=== PATIENT | female | born 1950 | race Two or more races ===

== ENCOUNTER 2025-02-11 17:22 | Inpatient (IN) | payer OTHER ==
[~2025-02-11] VITALS: Ht 147.3 cm; Wt 97.4 kg
[2025-02-11] MEDS: SODIUM CHLORIDE 0.9% 1,000 ML IV SCH (03:20)
--- NOTE | 2025-02-11 18:23 | ED.PDOC ---
History of Present Illness(SKN HPI Comments 74 year old female presents to the ED with a chief complaint of wound check. Patient states she began experiencing a wound on RT buttock about 1 week ago, was also experiencing fever with chills, last episode was 102.5 F. Patient states her friend drained the wound yesterday with pus drainage. This morning, she noticed discoloration around the wound. Patient is currently on 3L of O2 at night, upon ED arrival O2 sat was 85% on RA, placed on 3L O2 improved to 95%. PMHx HTN, MS, DM, osteoporosis. Denies nausea, vomiting, diarrhea, headache, abdominal pain, dizziness, chest pain, shortness of breath. No other symptoms or modifying factors present at this time. Chief Complaint: Wound Check Time Seen by MD: 18:10 History of Present Illness: Medications, Allergies Allergies: Coded Allergies: Erythromycin (Verified Allergy, Unknown, 02/11/25) Tetracycline (Verified Allergy, Unknown, 02/11/25) Information Source: Patient Mode of Arrival: Ambulatory Severity: Moderate Timing: Weeks Duration: Since onset Prehospital treatment: None Location: Buttock (RT) Mechanism: Spontaneous Onset Associated Signs and Symptoms: Fever, Chills Past Medical History PAST MEDICAL HISTORY: DM, HTN Past Medical History (Other): MS, osteporosis Surgical History: Denies all surgeries INSULATION APPLICATOR History: No Pertinent INSULATION APPLICATOR History Family History Family History: Reviewed,noncontributory to illness, No family hx of Cancer, No family hx of DM, No family hx of Heart yelena, No family hx of HTN, No family hx ofKidney yelena, No family hx of Liver yelena, No family hx of Lung yelena, No family hx of Stroke Social History Smoker: Non-Smoker Alcohol: Denies ETOH Use Drugs: Denies Drug Use Lives In: Home Constitutional: denies: chills, diaphoresis, fatigue, fever, malaise, sweats, weakness, others EENTM: denies: blurred vision, double vision, ear bleeding, ear discharge, ear drainage, ear pain, ear ringing, eye pain, eye redness, hearing loss, mouth pain, mouth swelling, nasal discharge, nose bleeding, nose congestion, nose pain, photophobia, tearing, throat pain, throat swelling, voice changes, others Respiratory: denies: cough, hemoptysis, orthopnea, SOB at rest, shortness of breath, SOB with excertion, stridor, wheezing, others Cardiovascular: denies: chest pain, dizzy spells, diaphoresis, Dyspnea on exertion, edema, irregular heart beat, left arm pain, lightheadedness, palpitations, PND, syncope, others Gastrointestinal: denies: abdomen distended, abdominal pain, blood streaked bowels, constipated, diarrhea, dysphagia, difficulty swallowing, hematemesis, melena, nausea, poor appetite, poor fluid intake, rectal bleeding, rectal pain, vomiting, others Genitourinary: denies: abnormal vagina bleeding, burning, dyspareunia, dysuria, flank pain, frequency, hematuria, incontinence, pain, , vagina discharge, urgency, others Neurological: denies: dizziness, fainting, headache, left sided numbness, left sided weakness, numbness, paresthesia, pre-existing deficit, right sided numbness, right sided weakness, seizure, speech problems, tingling, tremors, weakness, others Musculoskeletal: denies: back pain, gout, joint pain, joint swelling, muscle pain, muscle stiffness, neck pain, others Integumetry: reports: wounds (RT buttock); denies: bruises, change in color, change in hair/nails, dryness, laceration, lesions, lumps, rash, others Allergic/Immunocompromised: denies: Difficulty Healing, Frequent Infections, Hives, Itching, others Hematologic/Lymphatic: denies: anemia, blood clots, easy bleeding, easy bruising, swollen glands, others Endocrine: denies: excessive hunger, excessive sweating, excessive thirst, excessive urination, flushing, intolerance to cold, intolerance to heat, unexplained weight gain, unexplained weight loss, others Psychiatric: denies: anxiety, bipolar disorder, depression, hopeless, panic dis order, schizophrenia, sleepless, suicidal, others All Other Systems: Reviewed and Negative Physical Exam General Appearance: Normal HEENT: Normal ENT Inspection, Pharynx Normal, TMs Normal Neck: Full Range of Motion, Non-Tender, Normal, Normal Inspection Respiratory: Chest Non-Tender, Lungs Clear, No Accessory Muscle Use, No Respiratory Distress, Normal Breath Sounds Cardiovascular: No Edema, No JVD, No Murmur, No Gallop, Normal Peripheral Pulses, Regular Rate/Rhythm Breast Exam: Deferred Gastrointestinal: No Organomegaly, Non Tender, No Pulsatile Mass, Normal Bowel Sounds, Soft Genitalia: Deferred Pelvic: Deferred Rectal: Deferred Extremities: No calf tenderness, Normal capillary refill, Normal inspection, Normal range of motion, Non-tender, No pedal edema Musculoskeletal : Apperance: Normal Neurologic: Alert, truck caterer II-XII nml as Tested, No Motor Deficits, Normal Affect, Normal Mood, No Sensory Deficits Cerebellar Function: Normal Reflexes: Normal Skin: Wounds (4 x 1 cm wound to RT buttock with surrounding erythema) Lymphatic: No Adenopathy Was a procedure done? Was a procedure done?: No Differential Diagnosis (INTG) Differential Diagnosis: Cellulitis Differential Diagnosis: Abscess Abscess: Bacteremia, Gas Gangrene X-Ray, Labs, Meds, VS Vital Signs Date Time Temp Pulse Resp B/P (MAP) Pulse Ox O2 Delivery O2 Flow Rate FiO2 02/11/25 20:23 144 19 148/66 02/11/25 18:32 99.8 96 13 146/76 (99) 94 99.8 02/11/25 17:57 100.0 109 22 143/71 (95) 86 100.0 Lab Test 02/11/25 21:02 02/11/25 20:46 02/11/25 18:40 02/11/25 17:58 Range/Units Lactic Acid Level 1.5 2.5 *H 0.4-2.0 mmol/L Urine Color Light-yellow Yellow Urine Clarity Clear Clear Urine pH 6.5 5.0-9.0 Urine Specific [place] 1.017 1.001-1.035 Urine Protein Negative Negative Urine Ketones Negative Negative Urine Blood 1+ H Negative /uL Urine Nitrite Negative Negative Urine Bilirubin Negative Negative Urine Urobilinogen Normal Negative mg/dL Urine Leukocyte Esterase 1+ Negative /uL Urine RBC 29 0 - 4 /hpf Urine Microscopic WBC 36 H 0-5 /HPF Urine Squamous Epithelial Cells Few <5 /hpf Urine Bacteria None seen None Seen /hpf Urine Mucus Few None Seen Urine Glucose Normal Normal mg/dL White Blood Count 12.5 H 4.4-10.8 10^3/uL Red Blood Count 4.47 4.0-5.20 10^6/uL Hemoglobin 12.2 12.2-16.2 g/dL Hematocrit 37.7 36.0-46.0 % Mean Corpuscular Volume 84.2 80.0-100.0 fL Mean Corpuscular Hemoglobin 27.4 L 28.0-32.0 pg Mean Corpuscular Hemoglobin Concent 32.5 32.0-36.0 g/dL Red Cell Distribution Width 15.3 H 11.8-14.3 % Platelet Count 315 140-450 10^3/uL Mean Platelet Volume 6.6 L 6.9-10.8 fL Neutrophils (%) (Auto) 77.5 37.0-80.0 % Lymphocytes (%) (Auto) 12.4 10.0-50.0 % Monocytes (%) (Auto) 9.1 0.0-12.0 % Eosinophils (%) (Auto) 0.8 0.0-7.0 % Basophils (%) (Auto) 0.2 0.0-2.0 % Neutrophils # (Auto) 9.7 H 1.6-8.6 10 ^3/uL Lymphocytes # (Auto) 1.5 0.4-5.4 10 ^3/uL Monocytes # (Auto) 1.1 0-1.3 10 ^3/uL Eosinophils # (Auto) 0.1 0-0.8 10 ^3/uL Basophils # (Auto) 0 0-0.2 10 ^3/uL Nucleated Red Blood Cells 0.1 % Sodium Level 137 136-145 mmol/L Potassium Level 3.8 3.5-5.1 mmol/L Chloride Level 99 98-107 mmol/L Carbon Dioxide Level 29 20-31 mmol/L Anion Gap 9 5-15 Blood Urea Nitrogen 19 9-23 mg/dL Creatinine 0.69 0.550-1.02 mg/dL Glomerular Filtration Rate Calc 90 >90 mL/min BUN/Creatinine Ratio 27.5 H 10.0-20.0 Serum Glucose 160 H 74-106 mg/dL Calcium Level 11.3 H 8.7-10.4 mg/dL Total Bilirubin 0.4 0.2-1.0 mg/dL Aspartate Amino Transferase (AST) 23 13-40 U/L Alanine Aminotransferase (ALT) 14 7-40 U/L Alkaline Phosphatase 72 46-116 U/L Total Protein 7.4 5.7-8.2 g/dL Albumin 4.8 3.2-4.8 g/dL POC Glucose 175 H 70-106 mg/dl Current Medications Medications (Trade) Dose Ordered Sig/Paulo Route Start Time Stop Time Status Last Admin Vancomycin HCl 250 ml @ 200 mls/hr ONCE ONCE IV 02/11/25 18:30 02/11/25 19:44 DC 02/11/25 19:07 Sodium Chloride 1,000 ml @ 1,000 mls/hr Q1H ONCE IV 02/11/25 20:00 02/11/25 20:59 DC 02/11/25 20:23 Cefepime HCl 50 ml @ 12.5 mls/hr ONCE ONCE IV 02/11/25 20:00 02/11/25 23:59 02/11/25 21:06 Morphine Sulfate 4 mg ONCE ONCE IV 02/11/25 20:00 02/11/25 20:12 DC 02/11/25 20:23 Ondansetron HCl (Zofran) 4 mg ONCE ONCE IV 02/11/25 20:00 02/11/25 20:12 DC 02/11/25 20:23 X-Ray, Labs, Meds, VS Comment Imaging: X-rays and CT scans were reviewed and interpreted by this provider, imaging shows no fractures and no pathological disease. Pending radiology review. Laboratory: Labs reviewed and interpreted by this provider. Patient has elevated lactic acid, concerns of septicemia Patient will be admitted for cellulitis of the right thigh and bacteremia Patient will be started on vancomycin and cefepime 30 mix per kilos bolus was initiated, blood cultures drawn Patient has prior medical visits reviewed. Med reconciliation performed Vital signs reviewed Time of 1ST Reevaluation: 18:40 Reevaluation 1ST: Unchanged Patient Education/Counseling: Diagnosis, Treatment Family Education/Counseling: No Family Present SEPSIS Sepsis Screen Physician Orders Blood Culture (02/11/25 18:16) Cefepime 1gm/ 50ml (Maxipime 1gm/50ml) (02/11/25 20:00) Ondansetron Hcl (Zofran) (02/11/25 20:00) Vital Signs Date Time Temp Pulse Resp B/P (MAP) Pulse Ox O2 Delivery O2 Flow Rate FiO2 02/11/25 20:23 144 19 148/66 02/11/25 18:32 99.8 96 13 146/76 (99) 94 99.8 02/11/25 17:57 100.0 109 22 143/71 (95) 86 100.0 Laboratory Tests Test 02/11/25 18:40 02/11/25 21:02 Lactic Acid Level 2.5 mmol/L (0.4-2.0) *H 1.5 mmol/L (0.4-2.0) White Blood Count 12.5 10^3/uL (4.4-10.8) H Medications Medications Dose Ordered Sig/Paulo Route Start Time Stop Time Status Last Admin Dose Admin Cefepime HCl 50 ml @ 12.5 mls/hr ONCE ONCE IV 02/11/25 20:00 02/11/25 23:59 02/11/25 21:06 Morphine Sulfate 4 mg ONCE ONCE IV 02/11/25 20:00 02/11/25 20:12 DC 02/11/25 20:23 Ondansetron HCl 4 mg ONCE ONCE IV 02/11/25 20:00 02/11/25 20:12 DC 02/11/25 20:23 Sodium Chloride 1,000 ml @ 1,000 mls/hr Q1H ONCE IV 02/11/25 20:00 02/11/25 20:59 DC 02/11/25 20:23 Vancomycin HCl 250 ml @ 200 mls/hr ONCE ONCE IV 02/11/25 18:30 02/11/25 19:44 DC 02/11/25 19:07 Departure 1 Departure Time of Disposition: 21:29 Impression: Primary Impression: Bacteremia Additional Impression: Cellulitis and abscess of leg Disposition: ADMITTED INPATIENT Condition: Guarded Discharged With: Self Critical Care Note Critical Care Time?: No Stability Stability form required: No Heart Score Heart Score: Heart Score Response (Comments) Value History N/A 0 EKG N/A 0 Age N/A 0 Risk Factors N/A 0 Troponin N/A 0 Total 0 I personally scribed for CASSIDY CHEEMA DIRECTOR RELIGIOUS EDUCATION ([email or web address]) on 02/11/25 at 18:23. Electronically submitted by Cheri Pinon ([email or web address]). I personally scribed for CASSIDY CHEEMA DIRECTOR RELIGIOUS EDUCATION ([email or web address]) on 02/11/25 at 18:44. Electronically submitted by Cheri Pinon ([email or web address]). CASSIDY CHEEMA DIRECTOR RELIGIOUS EDUCATION Feb 11, 2025 18:23
[2025-02-11 18:56] LABS: Hematocrit 37.7 % (36.0-46.0); Hemoglobin 12.2 g/dL (12.2-16.2); Mean Corpuscular Hemoglobin 27.4 pg (28.0-32.0); Mean Corpuscular Volume 84.2 fL (80.0-100.0); Nucleated Red Blood Cells % 0.1 %
[2025-02-11] MEDS: VANCOMYCIN 1.25GM/250ML 250 ML IV ONE (19:07)
[2025-02-11 19:15] LABS: Alanine Aminotransferase 14 U/L (7-40); Albumin 4.8 g/dL (3.2-4.8); Alkaline Phosphatase 72 U/L (46-116); Anion Gap 9 (5-15); BUN/Creatinine Ratio 27.5 (10.0-20.0); Blood Urea Nitrogen 19 mg/dL (9-23); Carbon Dioxide 29 mmol/L (20-31); Chloride 99 mmol/L (98-107); Potassium 3.8 mmol/L (3.5-5.1); Sodium 137 mmol/L (136-145); Total Protein 7.4 g/dL (5.7-8.2)
[2025-02-11 19:16] LABS: Bilirubin, Total 0.4 mg/dL (0.2-1.0)
[2025-02-11 19:30] VITALS: PULSE 88; RESP 13; O2SAT 95
[2025-02-11 19:32] LABS: Calcium 11.3 mg/dL (8.7-10.4); Glucose 160 mg/dL (74-106)
[2025-02-11 19:41] LABS: Lactic Acid w/Reflex 2.5 mmol/L (0.4-2.0)
[2025-02-11] MEDS: ONDANSETRON HCL 4 MG/2 ML VIAL IV ONE (20:23)
[2025-02-11] MEDS: MORPHINE SULFATE 4 MG/ML SYR/VIAL IV ONE (20:23)
[2025-02-11] MEDS: SODIUM CHLORIDE 0.9% 1,000 ML IV ONE (20:23)
[2025-02-11] MEDS: CEFEPIME 1GM/ 50ML 50 ML IV ONE (21:06)
[2025-02-11 21:25] LABS: Urine Protein, UAD Negative (Negative)
[2025-02-11] MEDS: ACETAMINOPHEN 500 MG TAB or CAP PO ONE (22:26)
[2025-02-11] MEDS ORDERED: MORPHINE SULFATE INJ 2 MG/ml SYRG IV PRN (23:30)
[2025-02-11] MEDS ORDERED: DEXTROSE (50%) 50ML SYRG IV PRN (23:30)
[2025-02-11] MEDS ORDERED: VANCOMYCIN PER PHARMACY 0 MG IV SCH (23:30)
[2025-02-11] MEDS ORDERED: PIPERACILLIN-TAZOB 3.375GM 100 ML IV ONE (23:30)
[2025-02-11] MEDS ORDERED: SODIUM CHLORIDE 0.9% 1,000 ML IV SCH (23:30)
--- NOTE | 2025-02-11 23:42 | DVHHP2 ---
History of Present Illness History of Present Illness Patient is 74 years old female with past medical history of hypertension, diabetes mellitus, multiple sclerosis diagnosed in 1988, restless leg syndrome, carvedilol syndrome, chronic back pain, osteoporosis, obstructive sleep apnea on CPAP at night/or NC O2 3 L/min at night history of recurrent UTI came with a complaint of wound in the right buttock. As per patient she started developing small wound of the right lower buttock which gradually got worse and bigger. Yesterday she had this wound//abscess drained by friend at home which did not lots of passes. Patient also had a fever at home up to 102.5 degree F chills. Patient reported right buttock heart when sitting or putting pressure on the buttock. Patient also reported that she had a fall 2 days before at home when she was trying to transfer from bed to the chair and hit her right leg and head. Patient also reported urinary incontinence for a while. Patient denied any chest pain , diarrhea, coughing, abdominal pain, acute joint redness or swelling. Initial lab workup revealed leukocytosis WBC 12.5, hemoglobin 10.2, lactic acidosis with lactic acid 2.5,HbA1c 6.3, urinalysis revealed leukocyte esterase 1+, WBC 36, EKG revealed junctional tachycardia Past Medical History hypertension, diabetes mellitus, multiple sclerosis diagnosed in 1988, restless leg syndrome, carvedilol syndrome, chronic back pain, osteoporosis, obstructive sleep apnea on CPAP at night/or NC O2 3 L/min at night history of recurrent UTI Past Surgical History Pilonidal cyst removal Past Social History Patient denies smoking/alcoholism/drug abuse, lives with son Review of Systems Review of Systems Allergy- erythromycins, tetracycline Patient was seen today at the bedside. Cardiovascular- deny acute chest pain or shortness of breath or cough or palpitation Respiratory denies cough or short of breath or wheezing Gastrointestinal- denies any rectal bleeding, nausea or vomiting Musculoskeletal-denies acute joint swelling or tenderness or redness Neurological- denies acute dysarthria, dysphagia, change in vision Psychiatry- denies depression or SI or HI Skin- bruise in the right great toe Allergies: Coded Allergies: Erythromycin (Verified Allergy, Unknown, 02/11/25) Tetracycline (Verified Allergy, Unknown, 02/11/25) Medications Current Medications Medications Dose Ordered Sig/Paulo Route Start Time Stop Time Status Last Admin Dose Admin Sodium Chloride 1,000 ml @ 120 mls/hr Q8H20M IV 02/11/25 23:30 UNV Acetaminophen 650 mg Q6HP PRN PO 02/11/25 23:30 UNV Morphine Sulfate 2 mg Q30M PRN IV 02/11/25 23:30 UNV Enoxaparin Sodium 40 mg DAILY SC 02/12/25 10:00 UNV Piperacillin Sod/ Tazobactam Sod 100 ml @ 25 mls/hr Q6HR IV 02/12/25 00:00 UNV Vancomycin HCl 0 ml @ 0 mls/hr UD IV 02/11/25 23:30 UNV Sodium Chloride 1,000 ml @ 125 mls/hr Q8H IV 02/11/25 23:30 UNV Pantoprazole Sodium 40 mg DAILY@0600 PO 02/12/25 06:00 UNV Diagnostic Test (Pha) 1 strip ACHS 02/12/25 07:00 UNV Insulin Human Regular ACHS SC 02/12/25 07:00 UNV Dextrose 50 ml UD PRN IV 02/11/25 23:30 UNV Trazodone HCl 100 mg HS PO 02/12/25 22:00 UNV Losartan Potassium 25 mg DAILY PO 02/12/25 10:00 UNV Atorvastatin Calcium 20 mg HS PO 02/12/25 22:00 UNV Exam Vital Signs Vital Signs Date Time Temp Pulse Resp B/P (MAP) Pulse Ox O2 Delivery O2 Flow Rate FiO2 02/11/25 22:26 101.0 02/11/25 20:25 144 02/11/25 20:23 19 148/66 02/11/25 18:32 94 Exam General examination- awake, alert, conversant, mild bruise on the of the nose HEENT- PEERLA-mild abrasion on the of the nose Cardiovascular- S1-S2 audible, rate and rhythm regular, no murmur Respiratory- CTAB, no wheeze or rhonchi Gastrointestinal-nontender, bowel sound+. Nondistended Musculoskeletal-no acute joint swelling or tenderness or redness Lower extremity- bruise on the right great toe Neurological- cranial nerves intact, no acute dysarthria or dysphagia Psychiatry- denies depression or SI or HI Skin- bruise in the right great toe Labs/Xrays Labs Test 02/11/25 21:02 02/11/25 20:46 02/11/25 18:40 02/11/25 17:58 Range/Units Lactic Acid Level 1.5 0.4-2.0 mmol/L Urine Color Light-yellow Yellow Urine Clarity Clear Clear Urine pH 6.5 5.0-9.0 Urine Specific [place] 1.017 1.001-1.035 Urine Protein Negative Negative Urine Ketones Negative Negative Urine Blood 1+ H Negative /uL Urine Nitrite Negative Negative Urine Bilirubin Negative Negative Urine Urobilinogen Normal Negative mg/dL Urine Leukocyte Esterase 1+ Negative /uL Urine RBC 29 0 - 4 /hpf Urine Microscopic WBC 36 H 0-5 /HPF Urine Squamous Epithelial Cells Few <5 /hpf Urine Bacteria None seen None Seen /hpf Urine Mucus Few None Seen Urine Glucose Normal Normal mg/dL White Blood Count 12.5 H 4.4-10.8 10^3/uL Red Blood Count 4.47 4.0-5.20 10^6/uL Hemoglobin 12.2 12.2-16.2 g/dL Hematocrit 37.7 36.0-46.0 % Mean Corpuscular Volume 84.2 80.0-100.0 fL Mean Corpuscular Hemoglobin 27.4 L 28.0-32.0 pg Mean Corpuscular Hemoglobin Concent 32.5 32.0-36.0 g/dL Red Cell Distribution Width 15.3 H 11.8-14.3 % Platelet Count 315 140-450 10^3/uL Mean Platelet Volume 6.6 L 6.9-10.8 fL Neutrophils (%) (Auto) 77.5 37.0-80.0 % Lymphocytes (%) (Auto) 12.4 10.0-50.0 % Monocytes (%) (Auto) 9.1 0.0-12.0 % Eosinophils (%) (Auto) 0.8 0.0-7.0 % Basophils (%) (Auto) 0.2 0.0-2.0 % Neutrophils # (Auto) 9.7 H 1.6-8.6 10 ^3/uL Lymphocytes # (Auto) 1.5 0.4-5.4 10 ^3/uL Monocytes # (Auto) 1.1 0-1.3 10 ^3/uL Eosinophils # (Auto) 0.1 0-0.8 10 ^3/uL Basophils # (Auto) 0 0-0.2 10 ^3/uL Nucleated Red Blood Cells 0.1 % Sodium Level 137 136-145 mmol/L Potassium Level 3.8 3.5-5.1 mmol/L Chloride Level 99 98-107 mmol/L Carbon Dioxide Level 29 20-31 mmol/L Anion Gap 9 5-15 Blood Urea Nitrogen 19 9-23 mg/dL Creatinine 0.69 0.550-1.02 mg/dL Glomerular Filtration Rate Calc 90 >90 mL/min BUN/Creatinine Ratio 27.5 H 10.0-20.0 Serum Glucose 160 H 74-106 mg/dL Calcium Level 11.3 H 8.7-10.4 mg/dL Total Bilirubin 0.4 0.2-1.0 mg/dL Aspartate Amino Transferase (AST) 23 13-40 U/L Alanine Aminotransferase (ALT) 14 7-40 U/L Alkaline Phosphatase 72 46-116 U/L Total Protein 7.4 5.7-8.2 g/dL Albumin 4.8 3.2-4.8 g/dL POC Glucose 175 H 70-106 mg/dl Assessment/Plan Assessment/Plan Assessment and plan #Sepsis likely due right buttock abscess abscess -continue IV normal saline 125 mL per hour -continue antibiotics Zosyn 3.375 g IV q.8h and vancomycin as per pharmacy pr otocol -Ordered surgery consult -ordered wound consult -pending blood culture, wound culture #Abscess of the right buttock --continue antibiotics Zosyn and vancomycin Ordered surgery consult -ordered wound consult -pending blood culture, wound culture #History of fall -CT head negative for acute intracranial abnormality -x-ray of the right foot #Lactic acidosis -continue IV normal saline 125 mL/hour # acute cystitis -pending urine culture -continue current antibiotic #Hypertension -losartan 25 mg p.o. daily -monitor blood pressure #Diabetes mellitus type 2 -continue insulin sliding scale as prescribed # hyperlipidemia -continue atorvastatin 20 mg p.o. q.h.s. #Obstructive sleep apnea #Multiple sclerosis #History of Urinary incontinence #Carpal tunnel syndrome #Chronic back pain #Osteoporosis Goals of care, Code status , dull code ; discussed with >15 minutes PUD prophylaxis: Pantoprazole DVT prophylaxis: Lovenox Plan discussed with Dr. Mota , nursing staff, Total time spent on patient evaluation, chart review, assessment and plan, discussion discussion >35 minutes Plan discussed with: Patient, Other (RN) My Orders Orders - MIRIAM RUBI RESIDENT Procedure Category Date Status Time Admit ADMIT 02/11/25 Transmitted 23:21 Code Status CODE 02/11/25 Transmitted 23:21 Sodium Chloride 0.9% PHA 02/11/25 Logged 23:30 Complete Blood Count LAB 02/12/25 Verified 04:00 Comprehensive LAB 02/12/25 Verified Metabolic Panel 04:00 Echo 2d Mode Cardiac US 02/11/25 Logged DOP 23:21 Acetaminophen Tablet PHA 02/11/25 Logged (Tylenol Tablet) 23:30 Morphine Sulfate PHA 02/11/25 Logged Injection 23:30 Oxygen By Nasal RT 02/11/25 Transmitted Cannula 23:21 Notify Of Changes LOGAN 02/11/25 In Process From Base 23:21 Dry Wall Installations Mechanic For LOGAN 02/11/25 In Process 24 Hours 23:21 Enoxaparin Sodium PHA 02/12/25 Logged (Lovenox) 10:00 Enoxaparin Sodium PHA 02/11/25 Logged (Lovenox) 23:30 Piperacillin-Tazob PHA 02/11/25 Logged 3.375gm (Zosyn 3.375g 23:30 Piperacillin-Tazob PHA 02/12/25 Logged 3.375gm (Zosyn 3.375g 00:00 Vancomycin Per PHA 02/11/25 Logged Pharmacy 23:30 Wound Culture W/ Gs MARC 02/11/25 Logged 23:23 Urine Bacterial MARC 02/11/25 In Process Culture 23:23 Sodium Chloride 0.9% PHA 02/11/25 Logged 23:30 Pantoprazole Tablet PHA 02/11/25 Logged (Protonix Tablet) 23:30 Pantoprazole Tablet PHA 02/12/25 Logged (Protonix Tablet) 06:00 Glucose Blood PHA 02/12/25 Logged (Accu-Chek Comfort 07:00 Insulin R (Human) PHA 02/12/25 Logged (Insulin R) 07:00 Dextrose 50% Syringe PHA 02/11/25 Logged 23:30 Trazodone Hcl PHA 02/12/25 Logged (Desyrel) 22:00 Losartan Tablet PHA 02/12/25 Logged (Cozaar Tablet) 10:00 Atorvastatin (Lipitor) PHA 02/12/25 Logged 22:00 * Surgical Consult CONS 02/11/25 Transmitted * Wound Consult CONS 02/11/25 Transmitted B-Type Natriuretic LAB 02/11/25 Transmitted Peptide 23:31 Magnesium LAB 02/11/25 Transmitted 23:31 Thyroid Stimulating LAB 02/11/25 Transmitted Hormone 23:31 Troponin-I Hs LAB 02/11/25 Transmitted 23:31 Troponin-I Hs LAB 02/12/25 Verified 00:31 Troponin-I Hs LAB 02/12/25 Verified 02:31 Date of Service: Feb 11, 2025 Billing Provider: IDA MOTA MD Common Visit Codes: [id number] INP/OBS CARE (HIGH) Secondary Visit Codes: [id number] CARE PLAN 30 MINUTES MIRIAM RUBI RESIDENT Feb 11, 2025 23:42
[2025-02-12] VITALS (8 sets, daily range): BP systolic 108–170; BP diastolic 64–84; PULSE 62–92; RESP 16–20; TEMP 97.7–98.8; O2SAT 91–98
[2025-02-12] MEDS ORDERED: VANCOMYCIN 750mg/100mL D5W or NS KIT IV ONE
--- NOTE | 2025-02-12 01:08 | DVH ---
CLINICAL HISTORY: History of fall TECHNIQUE: Helical imaging carried out from skull base to vertex without intravenous contrast. This e xam was performed according to our departmental dose optimization program. Up-to-date CT equipment an d radiation dose reduction techniques are utilized as appropriate. CTDIVol: 64.4 mGy DLP: 1267.55 mGy-cm WID: COMPARISON: None FINDINGS: Mild cerebral volume loss with concordant prominence of the subarachnoid spaces and ventricles. Mild- to-moderate patchy low attenuation in the cerebral white matter consistent with nonspecific white mat ter disease. There is no midline shift or mass effect. The waldron white matter interfaces are maintained. The basal cisterns are patent. There is no evidence of acute intracranial hemorrhage or extra-axial fluid bernard ection. Small left mastoid air cell effusion. The right mastoid air cells and visualized paranasal si nuses are well-aerated IMPRESSION: No acute intracranial abnormality. Mild cerebral volume loss and [id number] chronic microvascular ischemic change.
--- NOTE | 2025-02-12 02:53 | DVH ---
EXAM: XY R ANKLE 2 VIEW XRAY HISTORY: fall COMPARISON: None TECHNIQUE: Three views of the right ankle were performed. IMPRESSION: Examination is severely limited secondary to patient positioning. There is chronic appearing deformit y and collapse of the talus. The calcaneus has abnormal morphology which appears likely chronic. It is impossible to exclude acute on chronic subluxation / dislocation or fracture versus chronic change s. Noncontrast CT is recommended.
--- NOTE | 2025-02-12 03:09 | DVH ---
CHEST RADIOGRAPH Indication: PNA Technique: Single frontal view of the chest was obtained Comparison: None IMPRESSION: Heart appears prominent in size. The lungs appear clear without focal airspace opacity, effusion, or pneumothorax
[2025-02-12] MEDS: ENOXAPARIN SOD 40 MG/0.4 ML SYRINGE SC ONE (03:17)
[2025-02-12] MEDS: PANTOPRAZOLE 40 MG TAB PO ONE (03:17)
[2025-02-12] MEDS: VANCOMYCIN 750 MG IV ONE (04:00)
[2025-02-12 04:19] LABS: Hematocrit 36.0 % (36.0-46.0); Hemoglobin 11.9 g/dL (12.2-16.2); Mean Corpuscular Hemoglobin 27.6 pg (28.0-32.0); Mean Corpuscular Volume 83.4 fL (80.0-100.0); Nucleated Red Blood Cells % 0.2 %
[2025-02-12 04:35] LABS: Alanine Aminotransferase 14 U/L (7-40); Albumin 4.1 g/dL (3.2-4.8); Alkaline Phosphatase 59 U/L (46-116); Anion Gap 7 (5-15); BUN/Creatinine Ratio 25.4 (10.0-20.0); Bilirubin, Total 0.5 mg/dL (0.2-1.0); Blood Urea Nitrogen 15 mg/dL (9-23); Calcium 10.2 mg/dL (8.7-10.4); Carbon Dioxide 30 mmol/L (20-31); Chloride 102 mmol/L (98-107); Potassium 3.7 mmol/L (3.5-5.1); Sodium 139 mmol/L (136-145); Total Protein 6.4 g/dL (5.7-8.2)
[2025-02-12] MEDS: VANCOMYCIN 750mg/150ml 150 ML IV ONE (04:41)
[2025-02-12 04:44] LABS: Glucose 201 mg/dL (74-106)
[2025-02-12] MEDS ORDERED: KETOROLAC TROMETH 30 MG/ML 1ML VIAL IV PRN (05:45)
[2025-02-12] MEDS: KETOROLAC TROMETH 30 MG/ML 1ML VIAL IV ONE (05:53)
--- NOTE | 2025-02-12 05:53 | ECG ---
[facility] Test Date: 2025-02-11 Test Time: 20:25:36 Pat Name: VALERIE RICE Department: ED Room: 0270T Gender: F Retail General Manager: LEX : [phone] Requested By: CASSIDY CHEEMA Order Number: [id number] Reading MD: Ulysses Gordon Measurements Intervals [place] Rate: 144 P: 0 IN: 0 QRS: 66 QRSD: 104 T: 259 QT: 295 QTc: 457 Interpretive Statements Junctional tachycardia Inferior infarct, age indeterminate Lateral leads are also involved Electronically Signed On 02-13-2025 10:25:00 PDT by Ulysses Gordon Please click the below link to view image of tracing.
[2025-02-12] MEDS: InsuLIN REG 1unit/0.01ml Soln (100units/ml) SC SCH (07:00)
[2025-02-12] MEDS: MAGNESIUM SULFATE 1GM/100ML 100 ML IV ONE (07:15)
[2025-02-12] MEDS: PANTOPRAZOLE 40 MG TAB PO SCH (07:16)
[2025-02-12] MEDS: ACCU-CHEK COMFORT CURVE STRIP VI SCH (07:17)
[2025-02-12] MEDS ORDERED: TRAM50TA2 PO (07:30)
[2025-02-12] MEDS ORDERED: METF-370 PO (07:30)
[2025-02-12] MEDS ORDERED: TIZA4CAP PO (07:30)
[2025-02-12] MEDS: LOSARTAN POTASSIUM 25 MG TAB PO SCH (10:56)
[2025-02-12] MEDS ORDERED: hydrALAZINE HCL 20 MG/ML VL IV PRN (12:45)
[2025-02-12] MEDS: HYDROcodone-ACET 10/325MG TAB PO PRN (13:03)
[2025-02-12] MEDS: LOSARTAN POTASSIUM 25 MG TAB PO ONE (13:05)
[2025-02-12] MEDS: PIPERACILLIN-TAZOB 3.375GM 100 ML IV SCH (14:00)
[2025-02-12] MEDS: GABAPENTIN 300 MG CAP PO SCH (14:15)
[2025-02-12] MEDS: MORPHINE SULFATE INJ 2 MG/ml SYRG IV PRN (14:15)
--- NOTE | 2025-02-12 14:15 | DVH ---
Technique: Real-time ultrasound imaging of the right gluteal region of interest was performed with gr ayscale and color Doppler. Indication: ABSCESS INFERIOR RT BUTTOCK Comparison: None Findings: Sonographic images of the right inguinal region of interest were obtained. There is a hypoechoic col lection measuring 1.2 x 0.4 cm with surrounding vascularity, likely representing phlegmon/abscess. T here is extensive surrounding soft tissue edema and hyperemia. There are echogenic foci within the laboy bcutaneous tissues consistent with air/gas. Correlate exclude necrotizing infections. Impression: As above
--- NOTE | 2025-02-12 14:56 | DVHSR ---
APPROVED REPORT EXAM: LIMITED Two-dimensional and M-mode echocardiogram with Doppler and color Doppler. Blood Pressure: 135/57 mmHg INDICATION cardiac arrythmia / HF RISK FACTORS Obesity: Height: 4'10, Weight: 253 DIMENSIONS LVDd (3.8-5.7cm)LA (2D)4.4 (1.9-4.0cm)Aortic Root (2.0-3.7cm) EF (%) 55.0 (55-70%)Rt. Atrium3.9 (1.9-4.0cm)Asc. Aorta cm Mitral Valve MitralMitral Stenosis E wave0.65m/sMV Mean GR.mmHg A wave0.98m/sMV Peak GR.65mmHg E/A ratio0.72D MVAcm2 DECEL [id number] 1/2 Timems Aortic Valve Aortic ValveAortic Stenosis V11.03m/Shanti Mean GR.5mmHg V21.48m/Shanti Peak GR.9mmHg LVOT Diameter2.2 (1.8-2.4cm)Doppler AVA2.64cm2 AI P 1/2 Hpeo048.13ms Other Information Quality : Technically LimitedRhythm : Technically limited study due to patient position.body habitus. Conclusion lvef 55% mild LVH normal rv function left atrium enlarged no severe valve abnormalities noted
[2025-02-12] MEDS: VANCOMYCIN 750mg/150ml 150 ML IV SCH (16:03)
--- NOTE | 2025-02-12 17:56 | DVHPNRES ---
Progress Note Date Seen: Feb 12, 2025 Resident Creating Document: JUAN RAMON SCHMID RESIDENT Medical Necessity Reason Pt with a Central, PICC or Fol: Yes The following are medically ne: Villalba Catheter Medical Necessity Reason Urinary Incontinence Subjective Review of Systems Patient is 74 years old female with past medical history of hypertension, diabetes mellitus, multiple sclerosis diagnosed in 1988, restless leg syndrome, carvedilol syndrome, chronic back pain, osteoporosis, obstructive sleep apnea on CPAP at night/or NC O2 3 L/min at night history of recurrent UTI came with a complaint of wound in the right buttock. As per patient she started developing small wound of the right lower buttock which gradually got worse and bigger. Yesterday she had this wound//abscess drained by friend at home which did not lots of passes. Patient also had a fever at home up to 102.5 degree F chills. Patient reported right buttock heart when sitting or putting pressure on the buttock. Patient also reported that she had a fall 2 days before at home when she was trying to transfer from bed to the chair and hit her right leg and head. Patient also reported urinary incontinence for a while. Patient denied any chest pain , diarrhea, coughing, abdominal pain, acute joint redness or swelling. Initial lab workup revealed leukocytosis WBC 12.5, hemoglobin 10.2, lactic acidosis with lactic acid 2.5,HbA1c 6.3, urinalysis revealed leukocyte esterase 1+, WBC 36, EKG revealed junctional tachycardia 02/12/25 Patient was examined at the bedside today. She reports worsening severe pain and swelling over the right buttock and lower gluteal region secondary to an abscess that was manually drained by a friend at home. She endorses persistent drainage, redness, warmth, and increasing discomfort. Additionally, the patient complains of bilateral lower extremity swelling described as "non-fitting" edema. She also notes pain in her right lower extremity, particularly the great toe region, following a fall 2 days ago. She denies chest pain, cough, or abdominal pain. She continues to have urinary incontinence. No nausea, vomiting, dizziness, headache, or visual changes reported today. She requests nursing assistance for wound care and toileting due to discomfort. Past Medical History hypertension, diabetes mellitus, multiple sclerosis diagnosed in 1988, restless leg syndrome, carvedilol syndrome, chronic back pain, osteoporosis, obstructive sleep apnea on CPAP at night/or NC O2 3 L/min at night history of recurrent UTI Past Surgical History Pilonidal cyst removal Past Social History Patient denies smoking/alcoholism/drug abuse, lives with son Review of Systems (ROS): * General: Fatigue, pain, fevers (prior) * Cardiovascular: Denies chest pain or palpitations * Respiratory: No cough or SOB * GI: No N/V/D, no abdominal pain * : Urinary incontinence persists * MSK: Right gluteal and lower extremity pain, right toe pain * Skin: Painful right buttock abscess with surrounding erythema * Neuro: No focal deficits, alert and oriented * Psych: No depression, SI/HI Objective vital signs Vital Sign Date Time Temp Pulse Resp B/P (MAP) Pulse Ox O2 Delivery O2 Flow Rate FiO2 02/12/25 16:39 98.8 68 16 148/78 (101) 94 98.8 02/12/25 06:34 Nasal Cannula* 2 28 Total Intake and Output 02/11/25 02/11/25 02/12/25 14:59 22:59 06:59 Intake Total 1262.5 ml 387.5 ml Balance 1262.5 ml 387.5 ml medications Current Medications Medications Dose Ordered Sig/Paulo Route Start Time Stop Time Status Last Admin Dose Admin Acetaminophen 650 mg Q6HP PRN PO 02/11/25 23:30 Morphine Sulfate 2 mg Q30M PRN IV 02/11/25 23:30 Enoxaparin Sodium 40 mg HS SC 02/12/25 22:00 Piperacillin Sod/ Tazobactam Sod 100 ml @ 25 mls/hr Q8HR IV 02/12/25 06:00 02/12/25 14:28 25 MLS/HR Vancomycin HCl 0 ml @ 0 mls/hr UD IV 02/11/25 23:30 Sodium Chloride 1,000 ml @ 125 mls/hr Q8H IV 02/11/25 23:30 02/12/25 09:00 125 MLS/HR Pantoprazole Sodium 40 mg DAILY@0600 PO 02/12/25 06:00 02/12/25 07:16 40 MG Diagnostic Test (Pha) 1 strip ACHS 02/12/25 07:00 02/12/25 11:30 1 STRIP Insulin Human Regular ACHS SC 02/12/25 07:00 Dextrose 50 ml UD PRN IV 02/11/25 23:30 Trazodone HCl 100 mg HS PO 02/12/25 22:00 Atorvastatin Calcium 20 mg HS PO 02/12/25 22:00 Vancomycin HCl 150 ml @ 150 mls/hr Q12H IV 02/12/25 16:00 02/12/25 16:03 150 MLS/HR Losartan Potassium 50 mg DAILY PO 02/13/25 10:00 Acetaminophen/ Hydrocodone Bitart 1 tab Q6HP PRN PO 02/12/25 12:45 02/12/25 13:03 1 TAB Morphine Sulfate 1 mg Q4HP PRN IV 02/12/25 12:45 02/12/25 14:15 1 MG Hydralazine HCl 10 mg Q6HP PRN IV 02/12/25 12:45 Gabapentin 600 mg TID PO 02/12/25 14:00 02/12/25 14:15 600 MG Baclofen 10 mg BID PRN PO 02/12/25 13:15 Polyethylene Glycol 17 gm DAILYPRN PRN PO 02/12/25 13:15 Examination Physical Examination: * General: Alert, conversant, uncomfortable due to pain * HEENT: Mild nasal abrasion noted previously, unchanged * CV: RRR, no murmur * Resp: CTAB, no distress * Abdomen: Soft, NT, BS+ * MSK: Bilateral LE pitting edema, right great toe bruised and tender, limited ambulation * Neuro: Alert and oriented, deputy county counsel intact * Skin: Right buttock abscess with fluctuance, erythema, tenderness, possible drainage site laboratory and microbiology Laboratory Tests 02/12/25 03:41 Test 02/12/25 03:41 Range/Units Serum Glucose 201 H 74-106 mg/dL Microbiology Date/Time Source Procedure Growth Status 02/12/25 08:00 Buttock Right Gram Stain - Final Resulted 02/12/25 08:00 Buttock Right Wound Culture Pending Resulted Problem List/Assessment/Plan Problem List/Assessment/Plan Assessment/Findings ): 1. Sepsis likely secondary to right gluteal abscess with early signs of soft tissue necrosis. 2. Right buttock abscess with probable secondary infection and necrotizing changes per U/S. 3. Bilateral lower extremity edema - likely multifactorial (infection, dependent edema, poor mobility, CHF vs. venous stasis). 4. Junctional tachycardia, rate 144 bpm likely secondary to systemic illness/stress response. 5. Urinary tract infection pyuria and hematuria with history of incontinence and recurrent UTIs. 6. History of mechanical fall with right lower extremity trauma. 7. Type 2 diabetes mellitus well-controlled inpatient on sliding scale insulin. 8. Hypertension currently elevated; continues on losartan. 9. Obstructive sleep apnea on CPAP. 10. Multiple sclerosis chronic, stable. 11. Osteoporosis chronic, 12. Hyperlipidemia on atorvastatin. Plan (System-reis): Infectious Disease / Skin & Soft Tissue: * Continue IV Zosyn 3.375g Q8H and IV Vancomycin per protocol * Continue IV Clindamycin 900mg TID * Continue NS 125 mL/hr for hydration * STAT Surgical consult for debridement of abscess vs. necrotizing fasciitis * Wound care consult for bedside management and debridement * Wound and blood cultures pending * Daily CBC, BMP, lactate Cardiovascular: * Monitor for signs of fluid overload vs. cardiac cause of LE edema * Continue Losartan 50 mg daily * Monitor BP q6h, Pulmonary: * Continue CPAP at night as per home use * CXR showed cardiomegaly but clear lungs monitor for signs of fluid overload or infection * SpO2 9195% RA; continue monitoring Renal/Urinary: * UA suggestive of cystitis continue current empiric antibiotics * Encourage PO fluids Endocrine (DM2): * Continue Insulin Regular ACHS sliding scale * POC glucose monitoring most recent 166 mg/dL * HbA1c 6.3% controlled Neurology: * MS stable * CT head shows chronic ischemic changes; no acute bleed * Monitor neuro status given fall history GI/Nutrition: * Continue Pantoprazole 40 mg PO daily * Encourage PO intake * Consider nutrition consult if poor oral intake persists Musculoskeletal / Fall: * Ankle X-ray inconclusive CT recommended * Right great toe injury conservative management unless worsening * Physical therapy referral for mobility Prophylaxis: * Enoxaparin 40 mg SC daily for DVT prophylaxis * Pantoprazole for stress ulcer prophylaxis Plan discussed with Attending Physician , nursing staff, Total time spent on patient evaluation, chart review, assessment and plan, discussion discussion >35 minutes Plan discussed with: Patient, Other (RN) Plan discussed with: Patient My Orders My Orders Orders - JUAN RAMON SCHMID RESIDENT Procedure Category Date Status Time Insert Midline ORDERS 02/12/25 Transmitted 08:32 Comprehensive LAB 02/13/25 Verified Metabolic Panel 04:00 Date of Service: Feb 12, 2025 Billing Provider: LUKAS RIVER MD Common Visit Codes: [id number] INP/OBS CARE(HIGH) JUAN RAMON SCHMID RESIDENT Feb 12, 2025 17:56 LUKAS RIVER MD Feb 23, 2025 02:38
[2025-02-12] MEDS: ENOXAPARIN SOD 40 MG/0.4 ML SYRINGE SC SCH (21:40)
[2025-02-12] MEDS: BACLOFEN 10 MG TAB PO PRN (21:41)
[2025-02-12] MEDS: ATORVASTATIN 20 MG TAB PO SCH (21:41)
[2025-02-12] MEDS: CLINDAMYCIN 900MG IV 50 ML IV SCH (21:42)
[2025-02-12] MEDS: POLYETHYLENE GLYCOL 17 GM PWDR PO PRN (21:43)
[2025-02-12] MEDS ORDERED: ROPI2TAB27 PO (22:06)
[2025-02-12] MEDS: ROPINIROLE 2 MG PO SCH (22:31)
[2025-02-13] VITALS (9 sets, daily range): BP systolic 132–158; BP diastolic 72–96; PULSE 74–89; RESP 18–20; TEMP 97.1–99.8; O2SAT 95–99
[2025-02-13 09:05] LABS: Hematocrit 35.0 % (36.0-46.0); Hemoglobin 11.4 g/dL (12.2-16.2); Mean Corpuscular Hemoglobin 27.5 pg (28.0-32.0); Mean Corpuscular Volume 84.3 fL (80.0-100.0); Nucleated Red Blood Cells % 0.1 %
[2025-02-13 09:27] LABS: Alanine Aminotransferase 11 U/L (7-40); Albumin 3.7 g/dL (3.2-4.8); Alkaline Phosphatase 55 U/L (46-116); Anion Gap 11 (5-15); BUN/Creatinine Ratio 20.3 (10.0-20.0); Blood Urea Nitrogen 12 mg/dL (9-23); Calcium 9.4 mg/dL (8.7-10.4); Carbon Dioxide 24 mmol/L (20-31); Chloride 102 mmol/L (98-107); Potassium 3.9 mmol/L (3.5-5.1); Sodium 137 mmol/L (136-145); Total Protein 5.9 g/dL (5.7-8.2)
[2025-02-13 09:28] LABS: Bilirubin, Total 0.4 mg/dL (0.2-1.0)
[2025-02-13 09:29] LABS: Glucose 217 mg/dL (74-106)
[2025-02-13] MEDS: LOSARTAN POTASSIUM 50 MG TAB PO SCH (10:19)
[2025-02-13] MEDS: VANCOMYCIN 1GM/250ML KIT 250 ML IV SCH (16:00)
--- NOTE | 2025-02-13 19:43 | DVHPNRES ---
Progress Note Date Seen: Feb 13, 2025 Resident Creating Document: JUAN RAMON SCHMID RESIDENT Medical Necessity Reason Pt with a Central, PICC or Fol: Yes The following are medically ne: Villalba Catheter Medical Necessity Reason Urinary incontinence Subjective Review of Systems Review of Systems Patient is 74 years old female with past medical history of hypertension, diabetes mellitus, multiple sclerosis diagnosed in 1988, restless leg syndrome, carvedilol syndrome, chronic back pain, osteoporosis, obstructive sleep apnea on CPAP at night/or NC O2 3 L/min at night history of recurrent UTI came with a complaint of wound in the right buttock. As per patient she started developing small wound of the right lower buttock which gradually got worse and bigger. Yesterday she had this wound//abscess drained by friend at home which did not lots of passes. Patient also had a fever at home up to 102.5 degree F chills. Patient reported right buttock heart when sitting or putting pressure on the buttock. Patient also reported that she had a fall 2 days before at home when she was trying to transfer from bed to the chair and hit her right leg and head. Patient also reported urinary incontinence for a while. Patient denied any chest pain , diarrhea, coughing, abdominal pain, acute joint redness or swelling. Initial lab workup revealed leukocytosis WBC 12.5, hemoglobin 10.2, lactic acidosis with lactic acid 2.5,HbA1c 6.3, urinalysis revealed leukocyte esterase 1+, WBC 36, EKG revealed junctional tachycardia 02/12/25 Patient was examined at the bedside today. She reports worsening severe pain and swelling over the right buttock and lower gluteal region secondary to an abscess that was manually drained by a friend at home. She endorses persistent drainage, redness, warmth, and increasing discomfort. Additionally, the patient complains of bilateral lower extremity swelling described as "non-fitting" edema. She also notes pain in her right lower extremity, particularly the great toe region, following a fall 2 days ago. She denies chest pain, cough, or abdominal pain. She continues to have urinary incontinence. No nausea, vomiting, dizziness, headache, or visual changes reported today. She requests nursing assistance for wound care and toileting due to discomfort. 02/12/25 The patient was re-examined at the bedside today. She continues to experience severe right buttock pain due to a draining abscess. Morphine was administered overnight for pain control, with subsequent improvement in blood pressure. RN confirms that wound care is ongoing with application of Medihoney, and the wound appears clean but still draining. The patient reports worsening symptoms of restless leg syndrome. Baclofen was administered for restless leg syndrome. Blood pressure has fluctuated today between 138/77 and 158/89. She received 2L nasal cannula overnight with SpO? maintained at 98%. WBC count has improved to 9.5, CMP remains stable. Wound culture preliminary shows rare growthpossible Staphylococcus aureus. Gram stain showed rare RBCs, WBCs, and rare gram-positive cocci in pairs. Blood cultures remain negative at 48 hours. Awaiting evaluation by general surgery. Past Medical History hypertension, diabetes mellitus, multiple sclerosis diagnosed in 1988, restless leg syndrome, carvedilol syndrome, chronic back pain, osteoporosis, obstructive sleep apnea on CPAP at night/or NC O2 3 L/min at night history of recurrent UTI Past Surgical History Pilonidal cyst removal Past Social History Patient denies smoking/alcoholism/drug abuse, lives with son Review of Systems (ROS): * General: Fatigue, pain, fevers (prior) * Cardiovascular: Denies chest pain or palpitations * Respiratory: No cough or SOB * GI: No N/V/D, no abdominal pain * : Urinary incontinence persists * MSK: Right gluteal and lower extremity pain, right toe pain * Skin: Painful right buttock abscess with surrounding erythema * Neuro: No focal deficits, alert and oriented * Psych: No depression, SI/HI Objective vital signs Vital Sign Date Time Temp Pulse Resp B/P (MAP) Pulse Ox O2 Delivery O2 Flow Rate FiO2 02/13/25 16:47 98.4 80 20 155/96 (115) 97 98.4 02/13/25 08:00 Nasal Cannula* 2 28 Total Intake and Output 02/12/25 02/12/25 02/13/25 15:00 23:00 07:00 Intake Total 2000 ml 700 ml Output Total 800 ml 600 ml Balance 1200 ml 100 ml medications Current Medications Medications Dose Ordered Sig/Paulo Route Start Time Stop Time Status Last Admin Dose Admin Acetaminophen 650 mg Q6HP PRN PO 02/11/25 23:30 Enoxaparin Sodium 40 mg HS SC 02/12/25 22:00 02/12/25 21:40 40 MG Vancomycin HCl 0 ml @ 0 mls/hr UD IV 02/11/25 23:30 Sodium Chloride 1,000 ml @ 125 mls/hr Q8H IV 02/11/25 23:30 02/12/25 09:00 125 MLS/HR Pantoprazole Sodium 40 mg DAILY@0600 PO 02/12/25 06:00 02/13/25 05:55 40 MG Diagnostic Test (Pha) 1 strip ACHS 02/12/25 07:00 02/13/25 17:05 1 STRIP Insulin Human Regular ACHS SC 02/12/25 07:00 02/13/25 17:06 2 UNITS Dextrose 50 ml UD PRN IV 02/11/25 23:30 Trazodone HCl 100 mg HS PO 02/12/25 22:00 02/12/25 21:41 100 MG Atorvastatin Calcium 20 mg HS PO 02/12/25 22:00 02/12/25 21:41 20 MG Losartan Potassium 50 mg DAILY PO 02/13/25 10:00 02/13/25 10:19 50 MG Acetaminophen/ Hydrocodone Bitart 1 tab Q6HP PRN PO 02/12/25 12:45 02/12/25 13:03 1 TAB Morphine Sulfate 1 mg Q4HP PRN IV 02/12/25 12:45 02/13/25 14:29 1 MG Hydralazine HCl 10 mg Q6HP PRN IV 02/12/25 12:45 Gabapentin 600 mg TID PO 02/12/25 14:00 02/13/25 14:29 600 MG Baclofen 10 mg BID PRN PO 02/12/25 13:15 02/13/25 17:22 10 MG Polyethylene Glycol 17 gm DAILYPRN PRN PO 02/12/25 13:15 02/12/25 21:43 17 GM Clindamycin Phosphate 50 ml @ 50 mls/hr Q8HR IV 02/12/25 22:00 02/13/25 14:00 50 MLS/HR Patient Own Medication 1 HS PO 02/13/25 22:00 02/12/25 22:31 1 Cefepime HCl 50 ml @ 12.5 mls/hr Q8H IV 02/13/25 23:00 Vancomycin HCl 250 ml @ 250 mls/hr Q12H IV 02/13/25 16:00 02/13/25 16:00 250 MLS/HR Examination Physical Examination: * General: Alert, conversant, uncomfortable due to pain * HEENT: Mild nasal abrasion noted previously, unchanged * CV: RRR, no murmur * Resp: CTAB, no distress * Abdomen: Soft, NT, BS+ * MSK: Bilateral LE pitting edema, right great toe bruised and tender, limited ambulation * Neuro: Alert and oriented, corrugated fastener driver intact * Skin: Right buttock abscess with fluctuance, erythema, tenderness, possible drainage site laboratory and microbiology Laboratory Tests 02/13/25 08:47 Test 02/13/25 08:47 Range/Units Serum Glucose 217 H 74-106 mg/dL Microbiology Date/Time Source Procedure Growth Status 02/12/25 08:00 Buttock Right Gram Stain - Final Resulted 02/12/25 08:00 Buttock Right Wound Culture - Preliminary Resulted 02/11/25 20:46 Voided Urine Urine Culture - Preliminary Resulted 02/11/25 18:40 Blood Blood Culture - Preliminary NO GROWTH AFTER 48 HOURS OF INCUBATION. Resulted Problem List/Assessment/Plan Problem List/Assessment/Plan Assessment/Findings ): 1. Sepsis likely secondary to right gluteal abscess with early signs of soft tissue necrosis. 2. Right buttock abscess with probable secondary infection and necrotizing changes per U/S. 3. Bilateral lower extremity edema - likely multifactorial (infection, dependent edema, poor mobility, venous stasis). 4. Junctional tachycardia, rate 144 bpm likely secondary to systemic illness/stress response. 5. Urinary tract infection pyuria and hematuria with history of incontinence and recurrent UTIs. 6. History of mechanical fall with right lower extremity trauma. 7. Type 2 diabetes mellitus well-controlled inpatient on sliding scale insulin. 8. Hypertension currently elevated; continues on losartan. 9. Obstructive sleep apnea on CPAP. 10. Multiple sclerosis chronic, stable. 11. Osteoporosis chronic, 12. Hyperlipidemia on atorvastatin. Plan (System-reis): Infectious Disease / Skin & Soft Tissue: Pain improved with morphine overnight; BP stabilized post-analgesia [facility] is draining Cefepime continued; Zosyn discontinued Await wound culture ID/sensitivity preliminary shows possible Staph aureus General surgery consult remains pending follow up today for debridement of abscess vs. necrotizing fasciitis * Continue IV Vancomycin per protocol * Continue IV Clindamycin 900mg TID * Continue NS 125 mL/hr for hydration * Wound care consult for bedside management and debridement * Daily CBC, BMP, lactate Cardiovascular: * Monitor for signs of fluid overload vs. cardiac cause of LE edema * Continue Losartan 50 mg daily * Monitor BP q6h, Echocardiogram findings (FYI) EF 55%, mild LVH, LAE, normal RV function no acute action required Pulmonary: * Continue CPAP at night as per home use * CXR showed cardiomegaly but clear lungs monitor for signs of fluid overload or infection * SpO2 9195% RA; continue monitoring Renal/Urinary: * UA suggestive of cystitis continue current empiric antibiotics * Encourage PO fluids Endocrine (DM2): * Continue Insulin Regular ACHS sliding scale * POC glucose monitoring most recent 166 mg/dL * HbA1c 6.3% controlled Neurology: * MS stable * CT head shows chronic ischemic changes; no acute bleed * Monitor neuro status given fall history Baclofen given for restless leg syndrome GI/Nutrition: * Continue Pantoprazole 40 mg PO daily * Encourage PO intake * Consider nutrition consult if poor oral intake persists Musculoskeletal / Fall: * Ankle X-ray inconclusive CT recommended * Right great toe injury conservative management unless worsening * Physical therapy referral for mobility Prophylaxis: * Enoxaparin 40 mg SC daily for DVT prophylaxis * Pantoprazole for stress ulcer prophylaxis Plan discussed with Attending Physician , nursing staff, Total time spent on patient evaluation, chart review, assessment and plan, discussion discussion >35 minutes Plan discussed with: Patient, Other (RN) Plan discussed with: Patient My Orders My Orders Orders - JUAN RAMON SCHMID RESIDENT Procedure Category Date Status Time Cefepime 2gm/50ml Ns PHA 02/13/25 In Process (Maxipime 2gm/50ml) 23:00 Complete Blood Count LAB 02/14/25 Verified 04:00 Comprehensive LAB 02/14/25 Verified Metabolic Panel 04:00 Dietary Evaluation Review Recommendations by RD: Dietary education by RD, Protein Supplementation Comments: 1) Initiate MVI @ 1 tb qd 2) Initiate vitamin C @ 500 mg bid and zinc sulfate @ 220 mg qd for 7 days 3) Initiate mer @ 1 pk bid 4) Encourage optimal PO intake 5) Refer to outpatient RD/CD[facility] for weight management 6) Continue to monitor I&O, labs, and skin integrity Expected Outcomes/Goals: 1) appetite and labs to improve 2) wound to improve 3) f/u in 3-5 days Date of Service: Feb 13, 2025 Billing Provider: LUKAS RIVER MD Common Visit Codes: [id number] INP/OBS CARE(HIGH) JUAN RAMON SCHMID RESIDENT Feb 13, 2025 19:43 LUKAS RIVER MD Feb 23, 2025 01:45
[2025-02-13] MEDS: CEFEPIME 2GM/50ML NS 50 ML IV SCH (22:54)
[2025-02-14] VITALS (7 sets, daily range): BP systolic 125–150; BP diastolic 70–90; PULSE 69–84; RESP 17–19; TEMP 96.6–98.6; O2SAT 92–96
[2025-02-14 07:13] LABS: Hematocrit 34.4 % (36.0-46.0); Hemoglobin 11.5 g/dL (12.2-16.2); Mean Corpuscular Hemoglobin 28.0 pg (28.0-32.0); Mean Corpuscular Volume 83.7 fL (80.0-100.0); Nucleated Red Blood Cells % 0.1 %
[2025-02-14 07:39] LABS: Albumin 3.8 g/dL (3.2-4.8); Alkaline Phosphatase 51 U/L (46-116); Anion Gap 9 (5-15); BUN/Creatinine Ratio 19.3 (10.0-20.0); Blood Urea Nitrogen 11 mg/dL (9-23); Calcium 9.8 mg/dL (8.7-10.4); Carbon Dioxide 27 mmol/L (20-31); Chloride 105 mmol/L (98-107); Potassium 4.0 mmol/L (3.5-5.1); Sodium 141 mmol/L (136-145); Total Protein 6.0 g/dL (5.7-8.2)
[2025-02-14 07:40] LABS: Bilirubin, Total 0.3 mg/dL (0.2-1.0)
[2025-02-14 07:50] LABS: Alanine Aminotransferase 9 U/L (7-40); Glucose 131 mg/dL (74-106)
--- NOTE | 2025-02-14 09:55 | DVHPNRES ---
Progress Note Date Seen: Feb 14, 2025 Resident Creating Document: ANGELO GUEVARA RESIDENT Has the PT tested + for MRSA If YES, has PT been informed?: No Medical Necessity Reason Pt with a Central, PICC or Fol: Yes The following are medically ne: Villalba Catheter Subjective Review of Systems Patient is 74 years old female with past medical history of hypertension, diabetes mellitus, multiple sclerosis diagnosed in 1988, restless leg syndrome, chronic back pain, osteoporosis, obstructive sleep apnea on CPAP at night/or NC O2 3 L/min at night history of recurrent UTI, consulted to the ED on 02/11with a complaint of wound in the right buttock. As per patient she started developing small wound of the right lower buttock which gradually got worse and bigger. The patiented reported she had this wound/abscess drained by friend at home which did not lots of passes. Patient also had a fever at home up to 102.5 degree and chills. Patient reported right buttock heart when sitting or putting pressure on the buttock. Patient also reported that she had a fall 2 days before at home when she was trying to transfer from bed to the chair and hit her right leg and head. Patient also reported urinary incontinence for a while. Patient denied any chest pain , diarrhea, coughing, abdominal pain, acute joint redness or swelling. Initial lab in the ED workup revealed leukocytosis WBC 12.5, hemoglobin 10.2, lactic acidosis with lactic acid 2.5,HbA1c 6.3, urinalysis revealed leukocyte esterase 1+, WBC 36, EKG revealed junctional tachycardia. 02/12/25 Patient was examined at the bedside today. She reports worsening severe pain and swelling over the right buttock and lower gluteal region secondary to an abscess that was manually drained by a friend at home. She endorses persistent drainage, redness, warmth, and increasing discomfort. Additionally, the patient complains of bilateral lower extremity swelling described as "non-fitting" edema. She also notes pain in her right lower extremity, particularly the great toe region, following a fall 2 days ago. She denies chest pain, cough, or abdominal pain. She continues to have urinary incontinence. No nausea, vomiting, dizziness, headache, or visual changes reported today. She requests nursing assistance for wound care and toileting due to discomfort. 02/13/25 The patient was re-examined at the bedside today. She continues to experience severe right buttock pain due to a draining abscess. Morphine was administered overnight for pain control, with subsequent improvement in blood pressure. RN confirms that wound care is ongoing with application of Medihoney, and the wound appears clean but still draining. The patient reports worsening symptoms of restless leg syndrome. Baclofen was administered for restless leg syndrome. Blood pressure has fluctuated today between 138/77 and 158/89. She received 2L nasal cannula overnight with SpO? maintained at 98%. WBC count has improved to 9.5, CMP remains stable. Wound culture preliminary shows rare growthpossible Staphylococcus aureus. Gram stain showed rare RBCs, WBCs, and rare gram-positive cocci in pairs. Blood cultures remain negative at 48 hours. Awaiting evaluation by general surgery. 02/14/25 The patient was re-examined at the bedside today. She continues to experience severe right buttock pain due to a draining abscess. Patient reports feeling better, the pain in her right buttock has improved. She reports no fever, nausea, vomit or chills during the night. She report a BM yesteraday. Patient complains of back pain 12/20, morphine was administered overnight for pain control. RN confirms that wound care is ongoing with application of Medihoney, and the wound appears clean but still draining. The patient reports worsening symptoms of restless leg syndrome. Baclofen was administered for restless leg syndrome. Blood pressure is She received 2L nasal cannula overnight with SpO? maintained at 98%. WBC count has improved to 5.9, CMP remains stable. Wound culture preliminary shows rare growthpossible Staphylococcus aureus. Gram stain showed rare RBCs, WBCs, and rare gram-positive cocci in pairs. Blood cultures remain negative at 48 hours. Surgical consult was placed, Dr. Davila evaluated the patient for surgical debriment and drainage. Patient started NPO to prepare for the procedure. Review of Systems (ROS): * General: Fatigue, pain, fevers (prior) * Cardiovascular: Denies chest pain or palpitations * Respiratory: No cough or SOB * GI: No N/V/D, no abdominal pain * : Urinary incontinence persists * MSK: Right gluteal and lower extremity pain, right toe pain * Skin: Painful right buttock abscess with surrounding erythema, draining fluid. * Neuro: No focal deficits, alert and oriented * Psych: No depression, SI/HI Examination Physical Examination: * General: Alert, conversant, uncomfortable due to pain * HEENT: Mild nasal abrasion noted previously, unchanged * CV: RRR, no murmur * Resp: CTAB, no distress * Abdomen: Soft, NT, BS+ * MSK: Bilateral LE pitting edema, right great toe bruised and tender, limited ambulation * Neuro: Alert and oriented, barrel finisher intact * Skin: Right buttock abscess with fluctuance, erythema, tenderness, draining think brownish fluid. Objective vital signs Vital Sign Date Time Temp Pulse Resp B/P (MAP) Pulse Ox O2 Delivery O2 Flow Rate FiO2 02/14/25 08:28 141/75 02/14/25 08:27 68 18 02/14/25 05:00 96.6 93 96.6 02/13/25 19:41 Nasal Cannula* 2 28 Total Intake and Output 02/13/25 02/13/25 02/14/25 15:00 23:00 07:00 Intake Total 467 ml 1100 ml 400 ml Output Total 1500 ml 1550 ml Balance 467 ml -400 ml -1150 ml medications Current Medications Medications Dose Ordered Sig/Paulo Route Start Time Stop Time Status Last Admin Dose Admin Acetaminophen 650 mg Q6HP PRN PO 02/11/25 23:30 Enoxaparin Sodium 40 mg HS SC 02/12/25 22:00 02/13/25 21:34 40 MG Vancomycin HCl 0 ml @ 0 mls/hr UD IV 02/11/25 23:30 Sodium Chloride 1,000 ml @ 125 mls/hr Q8H IV 02/11/25 23:30 02/14/25 07:30 125 MLS/HR Pantoprazole Sodium 40 mg DAILY@0600 PO 02/12/25 06:00 02/14/25 06:28 40 MG Diagnostic Test (Pha) 1 strip ACHS 02/12/25 07:00 02/14/25 06:28 1 STRIP Insulin Human Regular ACHS SC 02/12/25 07:00 02/14/25 06:36 2 UNITS Dextrose 50 ml UD PRN IV 02/11/25 23:30 Trazodone HCl 100 mg HS PO 02/12/25 22:00 02/13/25 21:33 100 MG Atorvastatin Calcium 20 mg HS PO 02/12/25 22:00 02/13/25 21:33 20 MG Losartan Potassium 50 mg DAILY PO 02/13/25 10:00 02/14/25 08:28 50 MG Acetaminophen/ Hydrocodone Bitart 1 tab Q6HP PRN PO 02/12/25 12:45 02/12/25 13:03 1 TAB Morphine Sulfate 1 mg Q4HP PRN IV 02/12/25 12:45 02/14/25 08:27 1 MG Hydralazine HCl 10 mg Q6HP PRN IV 02/12/25 12:45 Gabapentin 600 mg TID PO 02/12/25 14:00 02/14/25 06:28 600 MG Baclofen 10 mg BID PRN PO 02/12/25 13:15 02/13/25 17:22 10 MG Polyethylene Glycol 17 gm DAILYPRN PRN PO 02/12/25 13:15 02/13/25 21:34 17 GM Clindamycin Phosphate 50 ml @ 50 mls/hr Q8HR IV 02/12/25 22:00 02/14/25 06:28 50 MLS/HR Patient Own Medication 1 HS PO 02/13/25 22:00 02/13/25 21:34 1 Cefepime HCl 50 ml @ 12.5 mls/hr Q8H IV 02/13/25 23:00 02/14/25 06:28 12.5 MLS/HR Vancomycin HCl 250 ml @ 250 mls/hr Q12H IV 02/13/25 16:00 02/14/25 04:15 250 MLS/HR laboratory and microbiology Laboratory Tests 02/14/25 05:30 Test 02/14/25 05:30 Range/Units Serum Glucose 131 H 74-106 mg/dL Microbiology Date/Time Source Procedure Growth Status 02/12/25 08:00 Buttock Right Gram Stain - Final Resulted 02/12/25 08:00 Buttock Right Wound Culture - Preliminary Resulted 02/11/25 20:46 Voided Urine Urine Culture - Preliminary Resulted 02/11/25 18:40 Blood Blood Culture - Preliminary NO GROWTH AFTER 48 HOURS OF INCUBATION. Resulted Problem List/Assessment/Plan Problem List/Assessment/Plan Problem List/Assessment/Plan Assessment/Findings: 1. Sepsis likely secondary to right gluteal abscess with early signs of soft tissue necrosis. 2. Right buttock abscess with probable secondary infection and necrotizing changes per U/S. 3. Bilateral lower extremity edema - likely multifactorial (infection, dependent edema, poor mobility, CHF vs. venous stasis). 4. Junctional tachycardia, rate 144 bpm likely secondary to systemic illness/stress response. 5. Urinary tract infection pyuria and hematuria with history of incontinence and recurrent UTIs. 6. History of mechanical fall with right lower extremity trauma. 7. Type 2 diabetes mellitus well-controlled inpatient on sliding scale insulin. 8. Hypertension currently elevated; continues on losartan. 9. Obstructive sleep apnea on CPAP. 10. Multiple sclerosis chronic, stable. 11. Osteoporosis chronic, 12. Hyperlipidemia on atorvastatin. Plan (System-reis): Sepsis likely secondary to right gluteal abscess with early signs of soft tissue necrosis. * Continue IV Zosyn 3.375g Q8H and IV Vancomycin per protocol * Continue IV Clindamycin 900mg TID * Continue NS 125 mL/hr for hydration Right buttock abscess with probable secondary infection and necrotizing changes per U/S. * STAT Surgical consult for debridement of abscess vs. necrotizing fasciitis * Wound care consult for bedside management and debridement * Wound and blood cultures pending (preliminary: Staphilococcus aureus (+) * Daily CBC, BMP, lactate Bilateral lower extremity edema - likely multifactorial (infection, dependent edema, poor mobility, CHF vs. venous stasis) * Monitor for signs of fluid overload vs. cardiac cause of LE edema * Continue Losartan 50 mg daily * Monitor BP q6h, Pulmonary: * Continue CPAP at night as per home use * CXR showed cardiomegaly but clear lungs monitor for signs of fluid overload or infection * SpO2 9195% RA; continue monitoring Renal/Urinary: * UA suggestive of cystitis continue current empiric antibiotics * Encourage PO fluids Endocrine (DM2): * Continue Insulin Regular ACHS sliding scale * POC glucose monitoring most recent 166 mg/dL * HbA1c 6.3% controlled Neurology: * MS stable * CT head shows chronic ischemic changes; no acute bleed * Monitor neuro status given fall history GI/Nutrition: * Continue Pantoprazole 40 mg PO daily * Encourage PO intake * Consider nutrition consult if poor oral intake persists Musculoskeletal / Fall: * Ankle X-ray inconclusive CT recommended * Right great toe injury conservative management unless worsening * Physical therapy referral for mobility Prophylaxis: * Enoxaparin 40 mg SC daily for DVT prophylaxis * Pantoprazole for stress ulcer prophylaxis Plan discussed with Attending Physician Dr. Vides , nursing staff, Total time spent on patient evaluation, chart review, assessment and plan, discussion discussion >35 minutes Patient agrees with the plan. Full Code (+) Plan discussed with: Patient Dietary Evaluation Review Recommendations by RD: Dietary education by RD, Protein Supplementation Comments: 1) Initiate MVI @ 1 tb qd 2) Initiate vitamin C @ 500 mg bid and zinc sulfate @ 220 mg qd for 7 days 3) Initiate mer @ 1 pk bid 4) Encourage optimal PO intake 5) Refer to outpatient RD/CDCES for weight management 6) Continue to monitor I&O, labs, and skin integrity Expected Outcomes/Goals: 1) appetite and labs to improve 2) wound to improve 3) f/u in 3-5 days Date of Service: Feb 14, 2025 Billing Provider: LUKAS RIVER MD Common Visit Codes: [id number] INP/OBS CARE(HIGH) ANGELO GUEVARA RESIDENT Feb 14, 2025 09:55 LUKAS RIVER MD Feb 23, 2025 02:09
--- NOTE | 2025-02-14 10:19 | DVHINCON2 ---
Date of service: Feb 14, 2025 History of Present Illness 74-year-old female with history of diabetes and multiple sclerosis four day history of painful wound in her right posterior thigh with drainage. Patient does not know how it started. Past Medical History Hypertension. Diabetes. Multiple sclerosis diagnosed in 1988. Restless leg syndrome. Pain. Osteoporosis. Sleep apnea requiring CPAP at night. Past Surgical History Pilonidal cyst surgery Family History: Cardiovascular disease G8 MOTHER Family History Noncontributory Social History Denies alcohol, tobacco, IV drug use Allergies: Coded Allergies: Erythromycin (Verified Allergy, Unknown, 02/11/25) Tetracycline (Verified Allergy, Unknown, 02/11/25) Home Meds Reported Medications Ropinirole Hydrochloride (Ropinirole Hcl) 2 Mg Tab, 1 TAB PO 02/12/25 Tizanidine Hydrochloride (Zanaflex) 4 Mg Cap, 1 CAP PO QID, #30 CAP 02/12/25 Tramadol Hcl (Tramadol Hcl) 50 Mg Tab, 50 MG PO, TAB 02/12/25 Metformin Hydrochloride (Metformin Hcl) 500 Mg Tab, 1 TAB PO BID, #60 TAB 3 Refills 02/12/25 Current Medications Current Medications Medications (Trade) Dose Ordered Sig/Paulo Route PRN Reason Start Time Stop Time Status Last Admin Patient Own Medication 1 HS PO 02/13/25 22:00 02/13/25 21:34 Cefepime HCl 50 ml @ 12.5 mls/hr Q8H IV 02/13/25 23:00 02/14/25 06:28 Vancomycin HCl 250 ml @ 250 mls/hr Q12H IV 02/13/25 16:00 02/14/25 04:15 Vital Signs Vital Signs Date Time Temp Pulse Resp B/P (MAP) Pulse Ox O2 Delivery O2 Flow Rate FiO2 02/14/25 09:00 98.3 78 18 141/75 (97) 92 98.3 02/14/25 08:00 Nasal Cannula* 2 28 Physical Exam GEN: Obese elderly female in no acute distress. Alert. HEENT: Normocephalic atraumatic. Moist mucous membranes. Anicteric sclerae. CV: RRR Respiratory: Coarse breath sounds ABD: Obese abdomen. Soft. Nontender nondistended. Lower extremity: In the posterior right thigh region, there was an area approximately 15 x 10 cm of erythematous induration with small amount of necrotic eschar in the center. There was an tenderness to palpation. Minimal purulent drainage. Labs/Diagnostic Data Labs Test 02/14/25 05:30 02/13/25 16:35 02/13/25 14:55 02/12/25 03:41 Range/Units White Blood Count 5.9 # 4.4-10.8 10^3/uL Red Blood Count 4.11 4.0-5.20 10^6/uL Hemoglobin 11.5 L 12.2-16.2 g/dL Hematocrit 34.4 L 36.0-46.0 % Mean Corpuscular Volume 83.7 80.0-100.0 fL Mean Corpuscular Hemoglobin 28.0 28.0-32.0 pg Mean Corpuscular Hemoglobin Concent 33.4 32.0-36.0 g/dL Red Cell Distribution Width 15.0 H 11.8-14.3 % Platelet Count 275 140-450 10^3/uL Mean Platelet Volume 6.3 L 6.9-10.8 fL Neutrophils (%) (Auto) 53.2 37.0-80.0 % Lymphocytes (%) (Auto) 31.4 10.0-50.0 % Monocytes (%) (Auto) 10.6 0.0-12.0 % Eosinophils (%) (Auto) 4.3 0.0-7.0 % Basophils (%) (Auto) 0.5 0.0-2.0 % Neutrophils # (Auto) 3.1 1.6-8.6 10 ^3/uL Lymphocytes # (Auto) 1.9 0.4-5.4 10 ^3/uL Monocytes # (Auto) 0.6 0-1.3 10 ^3/uL Eosinophils # (Auto) 0.3 0-0.8 10 ^3/uL Basophils # (Auto) 0 0-0.2 10 ^3/uL Nucleated Red Blood Cells 0.1 % Sodium Level 141 136-145 mmol/L Potassium Level 4.0 3.5-5.1 mmol/L Chloride Level 105 98-107 mmol/L Carbon Dioxide Level 27 20-31 mmol/L Anion Gap 9 5-15 Blood Urea Nitrogen 11 9-23 mg/dL Creatinine 0.57 0.550-1.02 mg/dL Glomerular Filtration Rate Calc 95 >90 mL/min BUN/Creatinine Ratio 19.3 10.0-20.0 Serum Glucose 131 H 74-106 mg/dL Calcium Level 9.8 8.7-10.4 mg/dL Total Bilirubin 0.3 0.2-1.0 mg/dL Aspartate Amino Transferase (AST) 17 13-40 U/L Alanine Aminotransferase (ALT) 9 7-40 U/L Alkaline Phosphatase 51 46-116 U/L Total Protein 6.0 5.7-8.2 g/dL Albumin 3.8 3.2-4.8 g/dL POC Glucose 145 H 70-106 mg/dl Vancomycin Level Trough 8.3 5-10 ug/mL Platelet Estimate Adequate Large Platelets Few Hemoglobin A1c 6.3 H <5.7 % A1C Test 02/12/25 01:02 02/12/25 00:19 02/11/25 21:02 02/11/25 20:46 Range/Units Troponin I High Sensitivity 12 </=34 ng/L Vitamin B12 Level 725 211-911 pg/mL Folic Acid > 48.00 >5.38 ng/mL Vitamin D 25-Hydroxy 35.1 30.0-100 ng/mL Lactic Acid Level 1.5 0.4-2.0 mmol/L Urine Color Light-yellow Yellow Urine Clarity Clear Clear Urine pH 6.5 5.0-9.0 Urine Specific [place] 1.017 1.001-1.035 Urine Protein Negative Negative Urine Ketones Negative Negative Urine Blood 1+ H Negative /uL Urine Nitrite Negative Negative Urine Bilirubin Negative Negative Urine Urobilinogen Normal Negative mg/dL Urine Leukocyte Esterase 1+ Negative /uL Urine RBC 29 0 - 4 /hpf Urine Microscopic WBC 36 H 0-5 /HPF Urine Squamous Epithelial Cells Few <5 /hpf Urine Bacteria None seen None Seen /hpf Urine Mucus Few None Seen Urine Glucose Normal Normal mg/dL Test 02/11/25 18:40 Range/Units Magnesium Level 1.7 1.6-2.6 mg/dL B-Type Natriuretic Peptide 10.33 0-100 pg/mL Thyroid Stimulating Hormone (TSH) 1.64 0.55-4.78 uIU/mL Microbiology Date/Time Source Procedure Growth Status 02/12/25 08:00 Buttock Right Gram Stain - Final Resulted 02/12/25 08:00 Buttock Right Wound Culture - Preliminary Resulted 02/11/25 20:46 Voided Urine Urine Culture - Preliminary Resulted 02/11/25 18:40 Blood Blood Culture - Preliminary NO GROWTH AFTER 48 HOURS OF INCUBATION. Resulted Assessment 1. Right posterior thigh abscess with necrotic tissue Plan/Recommendation 1. Incision and drainage of right posterior thigh abscess Informed consent: The surgery and its risks including but not limited to infection, bleeding requiring possible blood transfusion with the risk of hepatitis or HIV infection, open wound requiring local wound care, possible perioperative [place] or stroke were explained to the patient. All questions were answered to her satisfaction. She expressed verbal understanding and wished to proceed with the surgery. Plan discussed with: Patient HECTOR RÍOS MD Feb 14, 2025 10:19
[2025-02-14 11:41] LABS: INR 0.94 (0.9-1.15); Partial Thromboplastin Time 28.2 SEC (24.5-34.5); Prothrombin Time 10.0 sec (9.3-11.8)
[2025-02-14] MEDS: ceFAZolin 1GM/50ML 100 ML IV ONE (12:38)
[2025-02-14] MEDS: METOCLOPRAMIDE HCL 5MG/ml INJ 2ml VIAL IV ONE (13:00)
[2025-02-14] MEDS ORDERED: hydrALAZINE HCL 20 MG/ML VL IV PRN (13:00)
[2025-02-14] MEDS ORDERED: HYDROmorphone HCL 2 MG/ML VL/or syr IV PRN (13:00)
[2025-02-14] MEDS: ONDANSETRON HCL 4 MG/2 ML VIAL IV ONE (13:00)
[2025-02-14] MEDS ORDERED: PROPOFOL 10 MG/ML 20 ML IV ONE (13:07)
[2025-02-14] MEDS ORDERED: MIDAZOLAM HCL 2MG/2ML 2ml VIAL (1mg/ml) ONE (13:07)
[2025-02-14] MEDS ORDERED: fentaNYL CITRATE 100 MCG/2 ML VL ONE (13:07)
[2025-02-14] MEDS: LIDOCAINE W/ EPINEPHRINE 1% 20ML VIAL ONE ×2 (13:28→13:40)
[2025-02-14] MEDS ORDERED: ONDANSETRON HCL 4 MG/2 ML VIAL ONE (13:30)
[2025-02-14] MEDS ORDERED: METOCLOPRAMIDE HCL 5MG/ml INJ 2ml VIAL ONE (13:30)
--- NOTE | 2025-02-14 13:45 | DVHOP2 ---
Operative Report - 2 Report Details Date: 02/14/25 Preop Diagnosis: Right posterior thigh abscess with necrotic tissue Postop Diagnosis: Same Surgeon: Hector Davila MD Medical Records Manager: None Anesthesiologist: Everette Grant CRNA Anesthesia: Mac, Local Drains: None Consent: The surgery and its risks including but not limited to infection, bleeding, open surgical site requiring wound care, possible perioperative [place] or stroke were explained to the patient. All questions were answered to her satisfaction. She expressed verbal understanding and wished to proceed with the surgery. Complications: None Estimated Blood Loss: 10 mL Fluids: 200 mL crystalloids Name of Procedure Performed Incision and drainage of right posterior abscess with necrotic tissue debridement Procedure Details Procedure Details: After induction of monitored anesthesia, patient was placed in a left lateral decubitus position and her right posterior thigh was prepped and draped in standard surgical fashion. 30 mL of 1% lidocaine with epinephrine was used as local anesthesia. Patient had about a 4 cm necrotic eschar in the center of her inflamed tissue in the posterior aspect of her right thigh. The necrotic tissue was excised revealing some purulent fluid in the soft tissue which was swabbed for Gram stain and culture. The abscess cavity was then vigorously curetted and some of the necrotic tissue at the base were excised until healthier tissue was encountered. The surgical site was then irrigated with diluted Betadine irrigation and packed with moist gauze dressing soaked in Betadine irrigation. Surgical site was cleaned and dried and dressings were applied. Sponge, needle, instrument count at the end of the case were reported to be correct by the nursing staff. Patient tolerated procedure well and was transferred to recovery in stable condition. Specimen: Gram stain and culture of the right posterior thigh abscess. Tissue at the edge of the wound Condition Stable Disposition Still a Patient HECTOR DAVILA MD Feb 14, 2025 13:45
[2025-02-14 18:42] LABS: Chloride 105 mmol/L (98-107); Potassium 4.0 mmol/L (3.5-5.1); Sodium 141 mmol/L (136-145)
[2025-02-14 18:43] LABS: Anion Gap 10 (5-15); Calcium 9.4 mg/dL (8.7-10.4); Carbon Dioxide 26 mmol/L (20-31)
[2025-02-14 18:48] LABS: BUN/Creatinine Ratio 23.8 (10.0-20.0); Blood Urea Nitrogen 15 mg/dL (9-23)
[2025-02-14 18:55] LABS: Glucose 169 mg/dL (74-106)
[2025-02-15] VITALS (9 sets, daily range): BP systolic 137–169; BP diastolic 70–95; PULSE 60–82; RESP 17–20; TEMP 98–99.3; O2SAT 91–96
[2025-02-15 03:36] LABS: Chloride 104 mmol/L (98-107); Potassium 4.1 mmol/L (3.5-5.1); Sodium 140 mmol/L (136-145)
[2025-02-15 03:37] LABS: Anion Gap 6 (5-15); Carbon Dioxide 30 mmol/L (20-31)
[2025-02-15 03:38] LABS: Calcium 8.9 mg/dL (8.7-10.4); Hematocrit 33.0 % (36.0-46.0); Hemoglobin 11.2 g/dL (12.2-16.2); Mean Corpuscular Hemoglobin 28.1 pg (28.0-32.0); Mean Corpuscular Volume 82.6 fL (80.0-100.0); Nucleated Red Blood Cells % 0.1 %
[2025-02-15 03:42] LABS: BUN/Creatinine Ratio 33.3 (10.0-20.0); Blood Urea Nitrogen 15 mg/dL (9-23); Glucose 103 mg/dL (74-106)
[2025-02-15] MEDS: VANCOMYCIN 1GM/200ML PM 200 ML IV ONE (04:16)
--- NOTE | 2025-02-15 09:46 | DVHPN2 ---
Progress Note - Dictate Date Seen: Feb 15, 2025 Has the PT tested + for MRSA If YES, has PT been informed?: No Medical Necessity Reason Pt with a Central, PICC or Fol: Yes The following are medically ne: Villalba Catheter vital signs Vital Sign Date Time Temp Pulse Resp B/P (MAP) Pulse Ox O2 Delivery O2 Flow Rate FiO2 02/15/25 05:00 98.7 60 18 159/84 (109) 94 98.7 02/15/25 01:02 4.0 36 02/14/25 20:30 Nasal Cannula* Total Intake and Output 02/14/25 02/14/25 02/15/25 15:00 23:00 07:00 Intake Total 100 ml 800 ml 1300 ml Output Total 900 ml 1300 ml Balance 100 ml -100 ml 0 ml medications Current Medications Medications Dose Ordered Sig/Paulo Route Start Time Stop Time Status Last Admin Dose Admin Acetaminophen 650 mg Q6HP PRN PO 02/11/25 23:30 Enoxaparin Sodium 40 mg HS SC 02/12/25 22:00 02/14/25 21:31 40 MG Vancomycin HCl 0 ml @ 0 mls/hr UD IV 02/11/25 23:30 Sodium Chloride 1,000 ml @ 125 mls/hr Q8H IV 02/11/25 23:30 02/14/25 15:31 125 MLS/HR Pantoprazole Sodium 40 mg DAILY@0600 PO 02/12/25 06:00 02/15/25 05:34 40 MG Diagnostic Test (Pha) 1 strip ACHS 02/12/25 07:00 02/15/25 06:18 1 STRIP Insulin Human Regular ACHS SC 02/12/25 07:00 02/14/25 21:29 3 UNITS Dextrose 50 ml UD PRN IV 02/11/25 23:30 Trazodone HCl 100 mg HS PO 02/12/25 22:00 02/14/25 21:32 100 MG Atorvastatin Calcium 20 mg HS PO 02/12/25 22:00 02/14/25 21:32 20 MG Losartan Potassium 50 mg DAILY PO 02/13/25 10:00 02/14/25 08:28 50 MG Acetaminophen/ Hydrocodone Bitart 1 tab Q6HP PRN PO 02/12/25 12:45 02/15/25 04:51 1 TAB Morphine Sulfate 1 mg Q4HP PRN IV 02/12/25 12:45 02/15/25 02:03 1 MG Hydralazine HCl 10 mg Q6HP PRN IV 02/12/25 12:45 Gabapentin 600 mg TID PO 02/12/25 14:00 02/15/25 05:34 600 MG Baclofen 10 mg BID PRN PO 02/12/25 13:15 02/13/25 17:22 10 MG Polyethylene Glycol 17 gm DAILYPRN PRN PO 02/12/25 13:15 02/13/25 21:34 17 GM Clindamycin Phosphate 50 ml @ 50 mls/hr Q8HR IV 02/12/25 22:00 02/15/25 05:34 50 MLS/HR Patient Own Medication 1 HS PO 02/13/25 22:00 02/14/25 21:32 1 Cefepime HCl 50 ml @ 12.5 mls/hr Q8H IV 02/13/25 23:00 02/15/25 06:44 12.5 MLS/HR Vancomycin HCl 250 ml @ 250 mls/hr Q12H IV 02/13/25 16:00 02/15/25 04:16 250 MLS/HR objective GEN: NAD RLE: dressing intact. laboratory and microbiology Laboratory Tests 02/15/25 02:46 Test 02/15/25 02:46 Range/Units Serum Glucose 103 74-106 mg/dL Assessment/Plan A: 1. s/p I+D of right posterior thigh abscess POD #1 P: 1. cont local wound care 2. f/u in my clinic in 2 weeks. call [phone] for appt. Dietary Evaluation Review Recommendations by RD: Dietary education by RD, Protein Supplementation Comments: 1) Initiate MVI @ 1 tb qd 2) Initiate vitamin C @ 500 mg bid and zinc sulfate @ 220 mg qd for 7 days 3) Initiate mer @ 1 pk bid 4) Encourage optimal PO intake 5) Refer to outpatient RD/CDCES for weight management 6) Continue to monitor I&O, labs, and skin integrity Expected Outcomes/Goals: 1) appetite and labs to improve 2) wound to improve 3) f/u in 3-5 days Plan discussed with: Patient HECTOR RÍOS MD Feb 15, 2025 09:45
[2025-02-15] MEDS: VANCOMYCIN 1GM/200ML PM 200 ML IV SCH (18:00)
--- NOTE | 2025-02-15 19:52 | DVHPNRES ---
Progress Note Date Seen: Feb 15, 2025 Resident Creating Document: JUAN RAMON SCHMID RESIDENT Has the PT tested + for MRSA If YES, has PT been informed?: No Medical Necessity Reason Pt with a Central, PICC or Fol: Yes The following are medically ne: Villalba Catheter Subjective Review of Systems Review of Systems Patient is 74 years old female with past medical history of hypertension, diabetes mellitus, multiple sclerosis diagnosed in 1988, restless leg syndrome, carvedilol syndrome, chronic back pain, osteoporosis, obstructive sleep apnea on CPAP at night/or NC O2 3 L/min at night history of recurrent UTI came with a complaint of wound in the right buttock. As per patient she started developing small wound of the right lower buttock which gradually got worse and bigger. Yesterday she had this wound//abscess drained by friend at home which did not lots of passes. Patient also had a fever at home up to 102.5 degree F chills. Patient reported right buttock heart when sitting or putting pressure on the buttock. Patient also reported that she had a fall 2 days before at home when she was trying to transfer from bed to the chair and hit her right leg and head. Patient also reported urinary incontinence for a while. Patient denied any chest pain , diarrhea, coughing, abdominal pain, acute joint redness or swelling. Initial lab workup revealed leukocytosis WBC 12.5, hemoglobin 10.2, lactic acidosis with lactic acid 2.5,HbA1c 6.3, urinalysis revealed leukocyte esterase 1+, WBC 36, EKG revealed junctional tachycardia 02/12/25 Patient was examined at the bedside today. She reports worsening severe pain and swelling over the right buttock and lower gluteal region secondary to an abscess that was manually drained by a friend at home. She endorses persistent drainage, redness, warmth, and increasing discomfort. Additionally, the patient complains of bilateral lower extremity swelling described as "non-fitting" edema. She also notes pain in her right lower extremity, particularly the great toe region, following a fall 2 days ago. She denies chest pain, cough, or abdominal pain. She continues to have urinary incontinence. No nausea, vomiting, dizziness, headache, or visual changes reported today. She requests nursing assistance for wound care and toileting due to discomfort. 02/12/25 The patient was re-examined at the bedside today. She continues to experience severe right buttock pain due to a draining abscess. Morphine was administered overnight for pain control, with subsequent improvement in blood pressure. RN confirms that wound care is ongoing with application of Medihoney, and the wound appears clean but still draining. The patient reports worsening symptoms of restless leg syndrome. Baclofen was administered for restless leg syndrome. Blood pressure has fluctuated today between 138/77 and 158/89. She received 2L nasal cannula overnight with SpO? maintained at 98%. WBC count has improved to 9.5, CMP remains stable. Wound culture preliminary shows rare growthpossible Staphylococcus aureus. Gram stain showed rare RBCs, WBCs, and rare gram-positive cocci in pairs. Blood cultures remain negative at 48 hours. Awaiting evaluation by general surgery. 02/16/25 Patient was evaluated at the bedside today. She reports that her pain level has improved significantly to 34/10 following recent interventions. However, she had trouble sleeping last night due to her CPAP machine settings not being optimal, and she is awaiting input from her son to verify the correct settings. The right gluteal abscess underwent incision and drainage (I&D) on 02/14/[address] Jain. Wound appears clean with drainage decreasing; home health wound care and dressing changes have been arranged upon discharge. Discharge is deferred today due to severe right foot pain secondary to a subacute fracture. Podiatry, orthopedic, and physical therapy evaluations are still pending. The patient remains hemodynamically stable with improving leukocytosis. Wound culture grew Viridans group Streptococci and Staphylococcus aureus, both of which are sensitive to clindamycin, erythromycin, oxacillin, TMP-SMX, vancomycin, and ampicillin-sulbactam. Blood and urine cultures remain negative. Pain is currently well-managed with Narco, morphine, and acetaminophen. She remains on vancomycin, cefepime, clindamycin and ropinirole. Past Medical History hypertension, diabetes mellitus, multiple sclerosis diagnosed in 1988, restless leg syndrome, carvedilol syndrome, chronic back pain, osteoporosis, obstructive sleep apnea on CPAP at night/or NC O2 3 L/min at night history of recurrent UTI Past Surgical History Pilonidal cyst removal Past Social History Patient denies smoking/alcoholism/drug abuse, lives with son Review of Systems (ROS): * General: Fatigue, pain, fevers (prior) * Cardiovascular: Denies chest pain or palpitations * Respiratory: No cough or SOB * GI: No N/V/D, no abdominal pain * : Urinary incontinence persists * MSK: Right gluteal and lower extremity pain, right toe pain * Skin: Draining wound on right gluteal region * Neuro: No focal deficits, alert and oriented * Psych: No depression, SI/HI Objective vital signs Vital Sign Date Time Temp Pulse Resp B/P (MAP) Pulse Ox O2 Delivery O2 Flow Rate FiO2 02/15/25 18:26 69 16 152/95 02/15/25 17:00 99.3 91 99.3 02/15/25 08:00 Nasal Cannula* 4 36 Total Intake and Output 02/14/25 02/14/25 02/15/25 14:59 22:59 06:59 Intake Total 100 ml 800 ml 1000 ml Output Total 900 ml 1300 ml Balance 100 ml -100 ml -300 ml medications Current Medications Medications Dose Ordered Sig/Paulo Route Start Time Stop Time Status Last Admin Dose Admin Acetaminophen 650 mg Q6HP PRN PO 02/11/25 23:30 Enoxaparin Sodium 40 mg HS SC 02/12/25 22:00 02/14/25 21:31 40 MG Vancomycin HCl 0 ml @ 0 mls/hr UD IV 02/11/25 23:30 Sodium Chloride 1,000 ml @ 125 mls/hr Q8H IV 02/11/25 23:30 02/15/25 15:40 125 MLS/HR Pantoprazole Sodium 40 mg DAILY@0600 PO 02/12/25 06:00 02/15/25 05:34 40 MG Diagnostic Test (Pha) 1 strip ACHS 02/12/25 07:00 02/15/25 17:13 1 STRIP Insulin Human Regular ACHS SC 02/12/25 07:00 02/15/25 17:00 3 UNITS Dextrose 50 ml UD PRN IV 02/11/25 23:30 Trazodone HCl 100 mg HS PO 02/12/25 22:00 02/14/25 21:32 100 MG Atorvastatin Calcium 20 mg HS PO 02/12/25 22:00 02/14/25 21:32 20 MG Losartan Potassium 50 mg DAILY PO 02/13/25 10:00 02/15/25 10:58 50 MG Acetaminophen/ Hydrocodone Bitart 1 tab Q6HP PRN PO 02/12/25 12:45 02/15/25 16:05 1 TAB Morphine Sulfate 1 mg Q4HP PRN IV 02/12/25 12:45 02/15/25 17:54 1 MG Hydralazine HCl 10 mg Q6HP PRN IV 02/12/25 12:45 Gabapentin 600 mg TID PO 02/12/25 14:00 02/15/25 14:16 600 MG Baclofen 10 mg BID PRN PO 02/12/25 13:15 02/13/25 17:22 10 MG Polyethylene Glycol 17 gm DAILYPRN PRN PO 02/12/25 13:15 02/13/25 21:34 17 GM Clindamycin Phosphate 50 ml @ 50 mls/hr Q8HR IV 02/12/25 22:00 02/15/25 14:16 50 MLS/HR Patient Own Medication 1 HS PO 02/13/25 22:00 02/14/25 21:32 1 Cefepime HCl 50 ml @ 12.5 mls/hr Q8H IV 02/13/25 23:00 02/15/25 15:00 12.5 MLS/HR Vancomycin HCl 200 ml @ 160 mls/hr Q8H IV 02/15/25 18:00 02/15/25 18:00 160 MLS/HR Examination Physical Examination: * General: Alert, conversant, uncomfortable due to pain * HEENT: Mild nasal abrasion noted previously, unchanged * CV: RRR, no murmur * Resp: CTAB, no distress * Abdomen: Soft, NT, BS+ * MSK: Bilateral LE pitting edema, right great toe bruised and tender, limited ambulation * Neuro: Alert and oriented, sample stitcher intact * Skin: Right buttock wound post I&D with clean drainage, no erythema laboratory and microbiology Laboratory Tests 02/15/25 02:46 Test 02/15/25 02:46 Range/Units Serum Glucose 103 74-106 mg/dL Microbiology Date/Time Source Procedure Growth Status 02/14/25 13:31 Other Gram Stain - Final Resulted 02/14/25 13:31 Other Anaerobic Culture - Preliminary Resulted 02/14/25 13:31 Other Aerobic Culture - Preliminary Resulted 02/11/25 20:46 Voided Urine Urine Culture - Final Complete 02/11/25 18:40 Blood Blood Culture - Preliminary NO GROWTH AFTER 72 HOURS OF INCUBATION. Resulted Problem List/Assessment/Plan Problem List/Assessment/Plan Assessment/Findings ): 1. Sepsis likely secondary to right gluteal abscess with early signs of soft tissue necrosis. 2. Right buttock abscess with probable secondary infection and necrotizing changes per U/S. 3. Bilateral lower extremity edema - likely multifactorial (infection, dependent edema, poor mobility, venous stasis). 4. Junctional tachycardia, rate 144 bpm likely secondary to systemic illness/stress response. 5. Urinary tract infection pyuria and hematuria with history of incontinence and recurrent UTIs. 6. History of mechanical fall with right lower extremity trauma. 7. Type 2 diabetes mellitus well-controlled inpatient on sliding scale insulin. 8. Hypertension currently elevated; continues on losartan. 9. Obstructive sleep apnea on CPAP. 10. Multiple sclerosis chronic, stable. 11. Osteoporosis chronic, 12. Hyperlipidemia on atorvastatin. Assessment & Plan (System-reis): 1. Right gluteal abscess (post-I&D 02/14/25) * Culture shows Viridans strep and Staph aureus sensitivities documented * Continue Vancomycin + Cefepime + Clindamycin (may de-escalate per ID recommendation) * Wound clean, drainage decreased * Home health wound care planned * General Surgery follow-up in 2 weeks 2. Right foot subacute fracture with pain * Significant pain limiting ambulation * Awaiting PT, Ortho, and Podiatry consults * Continue pain management with Narco, acetaminophen, and morphine PRN * Not fit for discharge today 3. Insomnia/Sleep Apnea CPAP settings mismatch * Patient unable to use CPAP due to incorrect pressure settings * Awaiting family input * Consider respiratory therapy assistance if issue persists 4. Hypertension * BP stable today (137/70 159/81) * Continue Losartan 50 mg PO daily * Monitor BP 5. Diabetes Mellitus Type 2 * On sliding scale insulin * Continue Insulin Regular ACHS, monitor POC BG 6. Restless Leg Syndrome * Ropinirole initiated, Baclofen continued * Monitor for symptom relief 7. Leukocytosis improving * WBC 7.5 continue trending labs * No signs of new infection 8. Prophylaxis / Other Medications * Enoxaparin 40 mg SC daily DVT prophylaxis * Pantoprazole 40 mg daily GI protection * Continue atorvastatin, trazodone, gabapentin, miralax, hydralazine * Clindamycin IV 50 mL/hr added per wound culture sensitivity * Dextrose PRN for hypoglycemia Orders to Place: Continue current antibiotics: Vancomycin, Cefepime, Clindamycin?? Continue pain meds: Narco Q6H PRN, Morphine PRN, Acetaminophen Q6H PRN Continue supportive meds: Losartan, Atorvastatin, Pantoprazole, Trazodone, Baclofen, Gabapentin, Hydralazine, Miralax, Insulin Continue Enoxaparin 40 mg SC PT, Podiatry, consults for subacute right foot fracture Monitor: BP Q6H, POC glucose ACHS, WBC daily, BMp, Continue Respiratory Therapy referral if CPAP settings unresolved Plan Summary: Patient is stable post-I&D with improved labs and pain control. Discharge delayed due to foot fracture. Awaiting PT and specialty consults. Managing RLS and sleep disturbance. All cultures reviewed. Monitoring for de- escalation of antibiotics based on sensitivity results. Plan discussed with Attending Physician , nursing staff, Total time spent on patient evaluation, chart review, assessment and plan, discussion discussion >35 minutes Plan discussed with: Patient, Other (RN) Plan discussed with: Patient Dietary Evaluation Review Recommendations by RD: Dietary education by RD, Protein Supplementation Comments: 1) Initiate MVI @ 1 tb qd 2) Initiate vitamin C @ 500 mg bid and zinc sulfate @ 220 mg qd for 7 days 3) Initiate mer @ 1 pk bid 4) Encourage optimal PO intake 5) Refer to outpatient RD/CD[facility] for weight management 6) Continue to monitor I&O, labs, and skin integrity Expected Outcomes/Goals: 1) appetite and labs to improve 2) wound to improve 3) f/u in 3-5 days Date of Service: Feb 15, 2025 Billing Provider: LUKAS RIVER MD Common Visit Codes: [id number] INP/OBS CARE(HIGH) JUAN RAMON SCHMID RESIDENT Feb 15, 2025 19:52 LUKAS RIVRE MD Feb 23, 2025 02:18
[2025-02-16] VITALS (8 sets, daily range): BP systolic 141–169; BP diastolic 62–91; PULSE 65–88; RESP 16–19; TEMP 97.8–98.5; O2SAT 91–98
[2025-02-16 06:09] LABS: Hematocrit 34.8 % (36.0-46.0); Hemoglobin 11.6 g/dL (12.2-16.2); Mean Corpuscular Hemoglobin 27.6 pg (28.0-32.0); Mean Corpuscular Volume 83.2 fL (80.0-100.0); Nucleated Red Blood Cells % 0.0 %
[2025-02-16 06:34] LABS: Albumin 3.8 g/dL (3.2-4.8); Alkaline Phosphatase 48 U/L (46-116); Anion Gap 9 (5-15); BUN/Creatinine Ratio 19.3 (10.0-20.0); Blood Urea Nitrogen 11 mg/dL (9-23); Calcium 10.0 mg/dL (8.7-10.4); Carbon Dioxide 26 mmol/L (20-31); Chloride 104 mmol/L (98-107); Potassium 4.1 mmol/L (3.5-5.1); Sodium 139 mmol/L (136-145); Total Protein 6.0 g/dL (5.7-8.2)
[2025-02-16 06:35] LABS: Alanine Aminotransferase < 9 U/L (7-40); Bilirubin, Total 0.3 mg/dL (0.2-1.0); Glucose 116 mg/dL (74-106)
--- NOTE | 2025-02-16 13:58 | DVHINCON2 ---
Date Seen: Feb 16, 2025 Reason for Consultation Right ankle deformity History of Present Illness Patient is 74 years old female with past medical history of hypertension, diabetes mellitus, multiple sclerosis diagnosed in 1988, restless leg syndrome, carvedilol syndrome, chronic back pain, osteoporosis, obstructive sleep apnea on CPAP at night/or NC O2 3 L/min at night history of recurrent UTI came with a complaint of wound in the right buttock. As per patient she started developing small wound of the right lower buttock which gradually got worse and bigger. Yesterday she had this wound//abscess drained by friend at home which did not lots of passes. Patient also had a fever at home up to 102.5 degree F chills. Patient reported right buttock heart when sitting or putting pressure on the buttock. Patient also reported that she had a fall 2 days before at home when she was trying to transfer from bed to the chair and hit her right leg and head. Patient also reported urinary incontinence for a while. Patient denied any chest pain , diarrhea, coughing, abdominal pain, acute joint redness or swelling. Initial lab workup revealed leukocytosis WBC 12.5, hemoglobin 10.2, lactic acidosis with lactic acid 2.5,HbA1c 6.3, urinalysis revealed leukocyte esterase 1+, WBC 36, EKG revealed junctional tachycardia Past Medical History See H&P Past Surgical History See H&P Family History: Cardiovascular disease G8 MOTHER Allergies: Coded Allergies: Erythromycin (Verified Allergy, Unknown, 02/11/25) Tetracycline (Verified Allergy, Unknown, 02/11/25) Home Meds Reported Medications Ropinirole Hydrochloride (Ropinirole Hcl) 2 Mg Tab, 1 TAB PO 02/12/25 Tizanidine Hydrochloride (Zanaflex) 4 Mg Cap, 1 CAP PO QID, #30 CAP 02/12/25 Tramadol Hcl (Tramadol Hcl) 50 Mg Tab, 50 MG PO, TAB 02/12/25 Metformin Hydrochloride (Metformin Hcl) 500 Mg Tab, 1 TAB PO BID, #60 TAB 3 Refills 02/12/25 Current Medications Current Medications Medications (Trade) Dose Ordered Sig/Paulo Route PRN Reason Start Time Stop Time Status Last Admin Vancomycin HCl 200 ml @ 160 mls/hr Q8H IV 02/15/25 18:00 02/16/25 08:17 Vital Signs Vital Signs Date Time Temp Pulse Resp B/P (MAP) Pulse Ox O2 Delivery O2 Flow Rate FiO2 02/16/25 13:22 65 18 141/83 02/16/25 13:00 98.0 93 98.0 02/16/25 08:00 Nasal Cannula* 4 36 Physical Exam Dermatological: No obvious derformity, swelling, bruising or skin changes No open wounds No signs of infection or trauma Vascular: Dorsalis pedis and posterior tibial pulses are 2+ bilaterally Capillary refill is <2 seconds Skin temperature is warm bilaterally Neurologic: Protective sensation intact to 10g monofilament Vibration sensation normal Musculoskeletal: Tenderness to palpation over medial ankle which appears to be chronic in nature No warmth, fluctuance, or crepitus noted Range of motion at the ankle and MTP joints is within normal limits. Strength is 5/5 in all tested muscle groups. Antalgic gait abnormality Labs/Diagnostic Data Labs Test 02/16/25 11:30 02/16/25 04:48 02/15/25 02:46 02/14/25 10:27 Range/Units POC Glucose 193 H 70-106 mg/dl White Blood Count 7.1 4.4-10.8 10^3/uL Red Blood Count 4.19 4.0-5.20 10^6/uL Hemoglobin 11.6 L 12.2-16.2 g/dL Hematocrit 34.8 L 36.0-46.0 % Mean Corpuscular Volume 83.2 80.0-100.0 fL Mean Corpuscular Hemoglobin 27.6 L 28.0-32.0 pg Mean Corpuscular Hemoglobin Concent 33.2 32.0-36.0 g/dL Red Cell Distribution Width 14.8 H 11.8-14.3 % Platelet Count 342 140-450 10^3/uL Mean Platelet Volume 6.4 L 6.9-10.8 fL Neutrophils (%) (Auto) 58.9 37.0-80.0 % Lymphocytes (%) (Auto) 27.2 10.0-50.0 % Monocytes (%) (Auto) 9.3 0.0-12.0 % Eosinophils (%) (Auto) 3.9 0.0-7.0 % Basophils (%) (Auto) 0.7 0.0-2.0 % Neutrophils # (Auto) 4.2 1.6-8.6 10 ^3/uL Lymphocytes # (Auto) 1.9 0.4-5.4 10 ^3/uL Monocytes # (Auto) 0.7 0-1.3 10 ^3/uL Eosinophils # (Auto) 0.3 0-0.8 10 ^3/uL Basophils # (Auto) 0.1 0-0.2 10 ^3/uL Nucleated Red Blood Cells 0.0 % Sodium Level 139 136-145 mmol/L Potassium Level 4.1 3.5-5.1 mmol/L Chloride Level 104 98-107 mmol/L Carbon Dioxide Level 26 20-31 mmol/L Anion Gap 9 5-15 Blood Urea Nitrogen 11 9-23 mg/dL Creatinine 0.57 0.550-1.02 mg/dL Glomerular Filtration Rate Calc 95 >90 mL/min BUN/Creatinine Ratio 19.3 10.0-20.0 Serum Glucose 116 H 74-106 mg/dL Calcium Level 10.0 8.7-10.4 mg/dL Total Bilirubin 0.3 0.2-1.0 mg/dL Aspartate Amino Transferase (AST) 17 13-40 U/L Alanine Aminotransferase (ALT) < 9 7-40 U/L Alkaline Phosphatase 48 46-116 U/L Total Protein 6.0 5.7-8.2 g/dL Albumin 3.8 3.2-4.8 g/dL Vancomycin Level Trough 6.1 5-10 ug/mL Prothrombin Time 10.0 9.3-11.8 sec Prothrombin Time INR 0.94 0.9-1.15 Activated Partial Thromboplast Time 28.2 24.5-34.5 SEC Test 02/12/25 03:41 02/12/25 01:02 02/12/25 00:19 02/11/25 21:02 Range/Units Platelet Estimate Adequate Large Platelets Few Hemoglobin A1c 6.3 H <5.7 % A1C Troponin I High Sensitivity 12 </=34 ng/L Vitamin B12 Level 725 211-911 pg/mL Folic Acid > 48.00 >5.38 ng/mL Vitamin D 25-Hydroxy 35.1 30.0-100 ng/mL Lactic Acid Level 1.5 0.4-2.0 mmol/L Test 02/11/25 20:46 02/11/25 18:40 Range/Units Urine Color Light-yellow Yellow Urine Clarity Clear Clear Urine pH 6.5 5.0-9.0 Urine Specific Marcy 1.017 1.001-1.035 Urine Protein Negative Negative Urine Ketones Negative Negative Urine Blood 1+ H Negative /uL Urine Nitrite Negative Negative Urine Bilirubin Negative Negative Urine Urobilinogen Normal Negative mg/dL Urine Leukocyte Esterase 1+ Negative /uL Urine RBC 29 0 - 4 /hpf Urine Microscopic WBC 36 H 0-5 /HPF Urine Squamous Epithelial Cells Few <5 /hpf Urine Bacteria None seen None Seen /hpf Urine Mucus Few None Seen Urine Glucose Normal Normal mg/dL Magnesium Level 1.7 1.6-2.6 mg/dL B-Type Natriuretic Peptide 10.33 0-100 pg/mL Thyroid Stimulating Hormone (TSH) 1.64 0.55-4.78 uIU/mL Microbiology Date/Time Source Procedure Growth Status 02/14/25 13:31 Other Gram Stain - Final Resulted 02/14/25 13:31 Other Anaerobic Culture - Preliminary Resulted 02/14/25 13:31 Other Aerobic Culture - Preliminary Resulted 02/11/25 20:46 Voided Urine Urine Culture - Final Complete 02/11/25 18:40 Blood Blood Culture - Preliminary NO GROWTH AFTER 72 HOURS OF INCUBATION. Resulted Problems(with codes): (1) Bacteremia (2) Cellulitis and abscess of leg Plan/Recommendation ASSESSMENT: Patient is a 74-year-old seen on the floor for a right ankle deformity PLAN: - The patients chart was reviewed, clinical findings were discussed with the patient, the etiologies of the conditions were discussed in detail, and a treatment plan was agreed to at this time, with both oral and written instructions provided. - reviewed advanced imaging - discussed that it appears to be chronic in nature - patient can go home and use her [id number] inserts and braces - no surgical intervention recommended at this point All questions were answered and concerns addressed to the patient's satisfact ion. The patient was given the phone number to the clinic and was told how to make contact with the clinic should any concerns or questions arise. Patient understands that if any questions or concerns arise prior to the next appointment, we should be contacted immediately. FOLLOW-UP: Continue to follow while inpatient Plan discussed with: Patient Date of Service: Feb 16, 2025 Billing Provider: PB ZAMBRANO DPM Common Visit Codes: CONSULT ONLY Consultation Codes: [id number] CONSULT <80MIN PB ZAMBRANO DPM Feb 16, 2025 13:58
--- NOTE | 2025-02-16 17:32 | DVHPNRES ---
Progress Note Date Seen: Feb 16, 2025 Resident Creating Document: JUAN RAMON SCHMID RESIDENT Has the PT tested + for MRSA If YES, has PT been informed?: No Medical Necessity Reason Pt with a Central, PICC or Fol: Yes The following are medically ne: Elizondo Catheter Reason for elizondo catheter: Bladder Retention/Obstruc Subjective Review of Systems Patient is 74 years old female with past medical history of hypertension, diabetes mellitus, multiple sclerosis diagnosed in 1988, restless leg syndrome, carvedilol syndrome, chronic back pain, osteoporosis, obstructive sleep apnea on CPAP at night/or NC O2 3 L/min at night history of recurrent UTI came with a complaint of wound in the right buttock. As per patient she started developing small wound of the right lower buttock which gradually got worse and bigger. Yesterday she had this wound//abscess drained by friend at home which did not lots of passes. Patient also had a fever at home up to 102.5 degree F chills. Patient reported right buttock heart when sitting or putting pressure on the buttock. Patient also reported that she had a fall 2 days before at home when she was trying to transfer from bed to the chair and hit her right leg and head. Patient also reported urinary incontinence for a while. Patient denied any chest pain , diarrhea, coughing, abdominal pain, acute joint redness or swelling. Initial lab workup revealed leukocytosis WBC 12.5, hemoglobin 10.2, lactic acidosis with lactic acid 2.5,HbA1c 6.3, urinalysis revealed leukocyte esterase 1+, WBC 36, EKG revealed junctional tachycardia 02/12/25 Patient was examined at the bedside today. She reports worsening severe pain and swelling over the right buttock and lower gluteal region secondary to an abscess that was manually drained by a friend at home. She endorses persistent drainage, redness, warmth, and increasing discomfort. Additionally, the patient complains of bilateral lower extremity swelling described as "non-fitting" edema. She also notes pain in her right lower extremity, particularly the great toe region, following a fall 2 days ago. She denies chest pain, cough, or abdominal pain. She continues to have urinary incontinence. No nausea, vomiting, dizziness, headache, or visual changes reported today. She requests nursing assistance for wound care and toileting due to discomfort. 02/12/25 The patient was re-examined at the bedside today. She continues to experience severe right buttock pain due to a draining abscess. Morphine was administered overnight for pain control, with subsequent improvement in blood pressure. RN confirms that wound care is ongoing with application of Medihoney, and the wound appears clean but still draining. The patient reports worsening symptoms of restless leg syndrome. Baclofen was administered for restless leg syndrome. Blood pressure has fluctuated today between 138/77 and 158/89. She received 2L nasal cannula overnight with SpO? maintained at 98%. WBC count has improved to 9.5, CMP remains stable. Wound culture preliminary shows rare growthpossible Staphylococcus aureus. Gram stain showed rare RBCs, WBCs, and rare gram-positive cocci in pairs. Blood cultures remain negative at 48 hours. Awaiting evaluation by general surgery. 02/15/25 Patient was evaluated at the bedside today. She reports that her pain level has improved significantly to 34/10 following recent interventions. However, she had trouble sleeping last night due to her CPAP machine settings not being optimal, and she is awaiting input from her son to verify the correct settings. The right gluteal abscess underwent incision and drainage (I&D) on 02/14/[address] Jain. Wound appears clean with drainage decreasing; home health wound care and dressing changes have been arranged upon discharge. Discharge is deferred today due to severe right foot pain secondary to a subacute fracture. Podiatry, orthopedic, and physical therapy evaluations are still pending. The patient remains hemodynamically stable with improving leukocytosis. Wound culture grew Viridans group Streptococci and Staphylococcus aureus, both of which are sensitive to clindamycin, erythromycin, oxacillin, TMP-SMX, vancomycin, and ampicillin-sulbactam. Blood and urine cultures remain negative. Pain is currently well-managed with Narco, morphine, and acetaminophen. She remains on vancomycin, cefepime, clindamycin and ropinirole. 02/16/25 he patient was seen and evaluated at the bedside today. She is in stable condition and reports that her pain is currently well-controlled at 3/10. Daily dressing changes have been performed, and the right gluteal wound appears clean with minimal drainage. She is now ambulating minimally with assistance and has participated in physical therapy (PT) evaluation. The PT team recommends a short-term stay at a nursing home facility (SNF) for 1 week for rehabilitation and assistance with ADLs, in addition to continued wound care and dressing changes. A podiatry consult was also completed today for her right foot pain secondary to a recent subacute fracture. No surgical intervention is recommended; the patient is advised to use [id number] arch supports and braces. The patient reports satisfaction with pain control and nursing care. program services planner is actively working on SNF placement and transportation. Patient currently receives home health visits 3x/week for personal care. Past Medical History hypertension, diabetes mellitus, multiple sclerosis diagnosed in 1988, restless leg syndrome, carvedilol syndrome, chronic back pain, osteoporosis, obstructive sleep apnea on CPAP at night/or NC O2 3 L/min at night history of recurrent UTI Past Surgical History Pilonidal cyst removal Past Social History Patient denies smoking/alcoholism/drug abuse, lives with son Review of Systems (ROS): * General: Fatigue, pain, fevers (prior) * Cardiovascular: Denies chest pain or palpitations * Respiratory: No cough or SOB * GI: No N/V/D, no abdominal pain * : Urinary incontinence persists * MSK: Right gluteal and lower extremity pain, right toe pain * Skin: Draining wound on right gluteal region * Neuro: No focal deficits, alert and oriented * Psych: No depression, SI/HI Objective vital signs Vital Sign Date Time Temp Pulse Resp B/P (MAP) Pulse Ox O2 Delivery O2 Flow Rate FiO2 02/16/25 17:23 65 18 142/62 02/16/25 17:08 98.5 94 98.5 02/16/25 08:00 Nasal Cannula* 4 36 Total Intake and Output 02/15/25 02/15/25 02/16/25 15:00 23:00 07:00 Intake Total 550 ml 600 ml Output Total 1800 ml 1800 ml Balance -1250 ml -1200 ml medications Current Medications Medications Dose Ordered Sig/Paulo Route Start Time Stop Time Status Last Admin Dose Admin Acetaminophen 650 mg Q6HP PRN PO 02/11/25 23:30 Enoxaparin Sodium 40 mg HS SC 02/12/25 22:00 02/15/25 21:41 40 MG Vancomycin HCl 0 ml @ 0 mls/hr UD IV 02/11/25 23:30 Sodium Chloride 1,000 ml @ 125 mls/hr Q8H IV 02/11/25 23:30 02/15/25 23:30 125 MLS/HR Pantoprazole Sodium 40 mg DAILY@0600 PO 02/12/25 06:00 02/16/25 05:26 40 MG Diagnostic Test (Pha) 1 strip ACHS 02/12/25 07:00 02/16/25 17:28 1 STRIP Insulin Human Regular ACHS SC 02/12/25 07:00 02/16/25 17:27 2 UNITS Dextrose 50 ml UD PRN IV 02/11/25 23:30 Trazodone HCl 100 mg HS PO 02/12/25 22:00 02/15/25 21:40 100 MG Atorvastatin Calcium 20 mg HS PO 02/12/25 22:00 02/15/25 22:10 20 MG Losartan Potassium 50 mg DAILY PO 02/13/25 10:00 02/16/25 08:18 50 MG Acetaminophen/ Hydrocodone Bitart 1 tab Q6HP PRN PO 02/12/25 12:45 02/16/25 11:29 1 TAB Morphine Sulfate 1 mg Q4HP PRN IV 02/12/25 12:45 02/16/25 17:23 1 MG Hydralazine HCl 10 mg Q6HP PRN IV 02/12/25 12:45 Gabapentin 600 mg TID PO 02/12/25 14:00 02/16/25 13:22 600 MG Baclofen 10 mg BID PRN PO 02/12/25 13:15 02/13/25 17:22 10 MG Polyethylene Glycol 17 gm DAILYPRN PRN PO 02/12/25 13:15 02/13/25 21:34 17 GM Clindamycin Phosphate 50 ml @ 50 mls/hr Q8HR IV 02/12/25 22:00 02/16/25 13:22 50 MLS/HR Patient Own Medication 1 HS PO 02/13/25 22:00 02/15/25 21:40 1 Cefepime HCl 50 ml @ 12.5 mls/hr Q8H IV 02/13/25 23:00 02/16/25 16:01 12.5 MLS/HR Vancomycin HCl 200 ml @ 160 mls/hr Q8H IV 02/15/25 18:00 02/16/25 08:17 160 MLS/HR Examination * General: Alert, cooperative, in no acute distress * Skin: Clean, healing gluteal wound with dressing in place * CV: RRR, no murmurs * Resp: CTAB, no wheezes or rales * GI: Soft, NT/ND, BS+ * Neuro: CN II-XII intact, oriented 3 * MSK: Right filter tank tender helper, mild swelling, no erythema * Extremities: No DVT signs, normal pulses * Psych: Appropriate affect laboratory and microbiology Laboratory Tests 02/16/25 04:48 Test 02/16/25 04:48 Range/Units Serum Glucose 116 H 74-106 mg/dL Microbiology Date/Time Source Procedure Growth Status 02/14/25 13:31 Other Gram Stain - Final Resulted 02/14/25 13:31 Other Anaerobic Culture - Preliminary Resulted 02/14/25 13:31 Other Aerobic Culture - Preliminary Resulted 02/11/25 20:46 Voided Urine Urine Culture - Final Complete 02/11/25 18:40 Blood Blood Culture - Preliminary NO GROWTH AFTER 72 HOURS OF INCUBATION. Resulted Problem List/Assessment/Plan Problem List/Assessment/Plan Assessment/Findings ): 1. Sepsis likely secondary to right gluteal abscess with early signs of soft tissue necrosis. 2. Right buttock abscess with probable secondary infection and necrotizing changes per U/S. 3. Bilateral lower extremity edema - likely multifactorial (infection, dependent edema, poor mobility, venous stasis). 4. Junctional tachycardia, rate 144 bpm likely secondary to systemic illness/stress response. 5. Urinary tract infection pyuria and hematuria with history of incontinence and recurrent UTIs. 6. History of mechanical fall with right lower extremity trauma. 7. Type 2 diabetes mellitus well-controlled inpatient on sliding scale insulin. 8. Hypertension currently elevated; continues on losartan. 9. Obstructive sleep apnea on CPAP. 10. Multiple sclerosis chronic, stable. 11. Osteoporosis chronic, 12. Hyperlipidemia on atorvastatin. Assessment & Plan (System-reis): 1. Right gluteal abscess (post-I&D 02/14/25) * Culture shows Viridans strep and Staph aureus sensitivities documented * Continue Vancomycin + Cefepime + Clindamycin (may de-escalate per ID recommendation) * Wound clean, drainage decreased * Home health wound care planned * General Surgery follow-up in 2 weeks 2. Right foot subacute fracture with pain * Significant pain limiting ambulation * Awaiting PT, Ortho, and Podiatry consults * Continue pain management with Narco, acetaminophen, and morphine PRN * Not fit for discharge today Musculoskeletal * Continue pain control: Narco Q6H PRN, Morphine PRN, Tylenol * OTC brace and inserts as per podiatry * No surgical intervention needed Functional / Rehab * SNF referral for 1-week rehab and wound care * Continue home health plan if SNF not available 3. Insomnia/Sleep Apnea CPAP settings mismatch * Patient unable to use CPAP due to incorrect pressure settings * Awaiting family input * Consider respiratory therapy assistance if issue persists 4. Hypertension * BP stable today (137/70 159/81) * Continue Losartan 50 mg PO daily * Monitor BP 5. Diabetes Mellitus Type 2 * On sliding scale insulin * Continue Insulin Regular ACHS, monitor POC BG 6. Restless Leg Syndrome * Ropinirole initiated, Baclofen continued * Monitor for symptom relief 7. Leukocytosis improving * WBC 7.5 continue trending labs * No signs of new infection 8. Prophylaxis / Other Medications * Enoxaparin 40 mg SC daily DVT prophylaxis * Pantoprazole 40 mg daily GI protection * Continue atorvastatin, trazodone, gabapentin, miralax, hydralazine * Clindamycin IV 50 mL/hr added per wound culture sensitivity * Dextrose PRN for hypoglycemia Orders to Place: Continue current antibiotics: Vancomycin, Cefepime, Clindamycin?? Continue pain meds: Narco Q6H PRN, Morphine PRN, Acetaminophen Q6H PRN Continue supportive meds: Losartan, Atorvastatin, Pantoprazole, Trazodone, Baclofen, Gabapentin, Hydralazine, Miralax, Insulin Continue Enoxaparin 40 mg SC PT, Podiatry, consults for subacute right foot fracture Monitor: BP Q6H, POC glucose ACHS, WBC daily, BMp, Continue Respiratory Therapy referral if CPAP settings unresolved .Plan Summary: Patient is doing well with stable vitals, pain control, clean wound, and completed consults. She is not safe for discharge home and is pending SNF placement for rehab, wound care, and ADL assistance. Awaiting social work update. Podiatry cleared her with conservative management. No surgical intervention needed. Medical issues stable on current treatment. Plan discussed with Attending Physician , nursing staff, Total time spent on patient evaluation, chart review, assessment and plan, discussion discussion >35 minutes Plan discussed with: Patient, Other (RN) Plan discussed with: Patient My Orders My Orders Orders - JUAN RAMON SCHMID RESIDENT Procedure Category Date Status Time Pt Request For Service PT 02/15/25 Logged 19:46 Order Special Ortho ORDERS 02/15/25 Transmitted Equipment 19:46 *Podiatry Consult CONS 02/15/25 Transmitted [facility]) 19:46 Complete Blood Count LAB 02/16/25 Verified 17:27 Comprehensive LAB 02/16/25 Verified Metabolic Panel 17:27 * Structural Engineering Drafting Officer CONS 02/16/25 Verified Consult Dietary Evaluation Review Recommendations by RD: Dietary education by RD, Protein Supplementation Comments: 1) Initiate MVI @ 1 tb qd 2) Initiate vitamin C @ 500 mg bid and zinc sulfate @ 220 mg qd for 7 days 3) Initiate mer @ 1 pk bid 4) Encourage optimal PO intake 5) Refer to outpatient RD/CD[facility] for weight management 6) Continue to monitor I&O, labs, and skin integrity Expected Outcomes/Goals: 1) appetite and labs to improve 2) wound to improve 3) f/u in 3-5 days Date of Service: Feb 16, 2025 Billing Provider: LUKAS RIVER MD Common Visit Codes: [id number] INP/OBS CARE(HIGH) JUAN RAMON SCHMID RESIDENT Feb 16, 2025 17:32 LUKAS RIVER MD Feb 23, 2025 02:24
[2025-02-17] VITALS (8 sets, daily range): BP systolic 135–168; BP diastolic 57–92; PULSE 65–81; RESP 14–17; TEMP 96.9–98.2; O2SAT 92–96
[2025-02-17] MEDS: VANCOMYCIN 1GM/200ML PM 200 ML IV SCH (05:43)
[2025-02-17 05:58] LABS: Hematocrit 36.3 % (36.0-46.0); Hemoglobin 12.0 g/dL (12.2-16.2); Mean Corpuscular Hemoglobin 27.5 pg (28.0-32.0); Mean Corpuscular Volume 83.3 fL (80.0-100.0); Nucleated Red Blood Cells % 0.2 %
[2025-02-17 06:10] LABS: Alanine Aminotransferase 11 U/L (7-40); Albumin 3.8 g/dL (3.2-4.8); Alkaline Phosphatase 47 U/L (46-116); Anion Gap 7 (5-15); BUN/Creatinine Ratio 23.5 (10.0-20.0); Blood Urea Nitrogen 12 mg/dL (9-23); Calcium 9.3 mg/dL (8.7-10.4); Carbon Dioxide 27 mmol/L (20-31); Chloride 104 mmol/L (98-107); Potassium 4.1 mmol/L (3.5-5.1); Sodium 138 mmol/L (136-145); Total Protein 6.0 g/dL (5.7-8.2)
[2025-02-17 06:11] LABS: Bilirubin, Total 0.3 mg/dL (0.2-1.0); Glucose 120 mg/dL (74-106)
--- NOTE | 2025-02-17 19:04 | DVHDSRES ---
Discharge Summary Date of Admission Resident Creating Document: BINUSALTYKAROLINE MADRIGAL RESIDENT Feb 11, 2025 at 23:21 Date of Discharge: Feb 17, 2025 Admitting Diagnosis 1. Right gluteal abscess status post incision and drainage 2. Soft tissue infection/cellulitis 3. Right foot subacute fracture 4. Restless leg syndrome 5. Hypertension 6. Type 2 diabetes mellitus 7. Obstructive sleep apnea on CPAP 8. Multiple sclerosis 9. Hyperlipidemia 10. History of fall 11. Anemia of chronic disease 12. Impaired mobility and ADL dependence 13. Pain syndrome 14. Recurrent urinary tract infection Labs/Diagnostic Data: Laboratory Results Test 02/17/25 17:53 02/17/25 04:31 02/16/25 17:29 02/14/25 10:27 POC Glucose 131 mg/dl (70-106) White Blood Count 7.1 10^3/uL (4.4-10.8) Red Blood Count 4.36 10^6/uL (4.0-5.20) Hemoglobin 12.0 g/dL (12.2-16.2) Hematocrit 36.3 % (36.0-46.0) Mean Corpuscular Volume 83.3 fL (80.0-100.0) Mean Corpuscular Hemoglobin 27.5 pg (28.0-32.0) Mean Corpuscular Hemoglobin Concent 33.0 g/dL (32.0-36.0) Red Cell Distribution Width 15.1 % (11.8-14.3) Platelet Count 327 10^3/uL (140-450) Mean Platelet Volume 6.4 fL (6.9-10.8) Neutrophils (%) (Auto) 56.7 % (37.0-80.0) Lymphocytes (%) (Auto) 28.6 % (10.0-50.0) Monocytes (%) (Auto) 10.1 % (0.0-12.0) Eosinophils (%) (Auto) 3.8 % (0.0-7.0) Basophils (%) (Auto) 0.8 % (0.0-2.0) Neutrophils # (Auto) 4.0 10 ^3/uL (1.6-8.6) Lymphocytes # (Auto) 2.0 10 ^3/uL (0.4-5.4) Monocytes # (Auto) 0.7 10 ^3/uL (0-1.3) Eosinophils # (Auto) 0.3 10 ^3/uL (0-0.8) Basophils # (Auto) 0.1 10 ^3/uL (0-0.2) Nucleated Red Blood Cells 0.2 % Sodium Level 138 mmol/L (136-145) Potassium Level 4.1 mmol/L (3.5-5.1) Chloride Level 104 mmol/L (98-107) Carbon Dioxide Level 27 mmol/L (20-31) Anion Gap 7 (5-15) Blood Urea Nitrogen 12 mg/dL (9-23) Creatinine 0.51 mg/dL (0.550-1.02) Glomerular Filtration Rate Calc 97 mL/min (>90) BUN/Creatinine Ratio 23.5 (10.0-20.0) Serum Glucose 120 mg/dL (74-106) Calcium Level 9.3 mg/dL (8.7-10.4) Total Bilirubin 0.3 mg/dL (0.2-1.0) Aspartate Amino Transferase (AST) 18 U/L (13-40) Alanine Aminotransferase (ALT) 11 U/L (7-40) Alkaline Phosphatase 47 U/L (46-116) Total Protein 6.0 g/dL (5.7-8.2) Albumin 3.8 g/dL (3.2-4.8) Vancomycin Level Trough 18.6 ug/mL (5-10) Prothrombin Time 10.0 sec (9.3-11.8) Prothrombin Time INR 0.94 (0.9-1.15) Activated Partial Thromboplast Time 28.2 SEC (24.5-34.5) Test 02/12/25 03:41 02/12/25 01:02 02/12/25 00:19 02/11/25 21:02 Platelet Estimate Adequate Large Platelets Few Hemoglobin A1c 6.3 % A1C (<5.7) Troponin I High Sensitivity 12 ng/L (</=34) Vitamin B12 Level 725 pg/mL (211-911) Folic Acid > 48.00 ng/mL (>5.38) Vitamin D 25-Hydroxy 35.1 ng/mL (30.0-100) Lactic Acid Level 1.5 mmol/L (0.4-2.0) Test 02/11/25 20:46 02/11/25 18:40 Urine Color Light-yellow (Yellow) Urine Clarity Clear (Clear) Urine pH 6.5 (5.0-9.0) Urine Specific [place] 1.017 (1.001-1.035) Urine Protein Negative (Negative) Urine Ketones Negative (Negative) Urine Blood 1+ /uL (Negative) Urine Nitrite Negative (Negative) Urine Bilirubin Negative (Negative) Urine Urobilinogen Normal mg/dL (Negative) Urine Leukocyte Esterase 1+ /uL (Negative) Urine RBC 29 /hpf (0 - 4) Urine Microscopic WBC 36 /HPF (0-5) Urine Squamous Epithelial Cells Few /hpf (<5) Urine Bacteria None seen /hpf (None Seen) Urine Mucus Few (None Seen) Urine Glucose Normal mg/dL (Normal) Magnesium Level 1.7 mg/dL (1.6-2.6) B-Type Natriuretic Peptide 10.33 pg/mL (0-100) Thyroid Stimulating Hormone (TSH) 1.64 uIU/mL (0.55-4.78) Other Laboratory Tests 02/17/25 04:31 Brief Hx & Hospital Course: The patient is a 74-year-old female with a past medical history of hypertension, type 2 diabetes mellitus, multiple sclerosis, obstructive sleep apnea, restless leg syndrome, hyperlipidemia, history of falls, anemia of chronic disease, and recurrent urinary tract infections. She presented to the hospital with severe right buttock pain, swelling, and drainage, concerning for a soft tissue abscess. She reported a history of a fall and manipulation of the abscess site by a friend, which worsened the infection. Initial evaluation showed fever, leukocytosis, elevated lactic acid, and localized tenderness over the right gluteal region. She was started on intravenous broad-spectrum antibiotics including Zosyn and Vancomycin, along with supportive care. Wound cultures revealed viridans group streptococci and Staphylococcus aureus. Blood and urine cultures remained negative. Antibiotic sensitivities showed susceptibility to clindamycin, erythromycin, oxacillin, TMP-SMX, vancomycin, and ampicillin-sulbactam. Based on clinical improvement and sensitivity data, the regimen was later narrowed to Augmentin for discharge. On February 14, 2025, the patient underwent incision and drainage of the abscess by Dr. Jain. Post-operatively, the wound showed good healing, decreased drainage, and was managed with Medihoney dressing. Pain was managed with multimodal analgesia including morphine, [place], acetaminophen, and baclofen. Pain scores improved from 89/10 to 3/10 at discharge. The patient was also noted to have right foot pain. Imaging revealed a subacute fracture. Orthopedic and podiatry evaluations were obtained. Podiatry recommended conservative management with oomy-xli-iosqezg inserts and bracing. No surgical intervention was necessary. Physical therapy evaluation found the patient not safe for independent ambulation and recommended short-term rehabilitation at a senior care facility for one week, focusing on mobility, assistance with activities of daily living, and wound care. The patient also receives home care services three times weekly, which will be continued through SNF. The patient tolerated a regular diet throughout admission, had regular bowel movements, maintained oxygen saturation on room air, and reported better sleep after pain was controlled. Restless leg syndrome was managed with baclofen and ropinirole. CPAP machine adjustments were pending coordination with the patients family. Consults/Reason for consult General Surgery: Wound abcess Podiatry : Toe fracture Operations or Procedures PATIENT: VALERIE RICE ACCT: [id number] UNIT: [id number] : 1950 LOC: [facility] ROOM / BED: [address] [place] [address] AGE / SEX: 74 / F ADM STATUS: ADM IN SERVICE 1259 ORDERING PHYSICIAN: MEAGAN BRICENO PROCEDURE(s): RLEXT - RIGHT LOWER EXTREMITY ULTRASOU REASON: ABSCESS INFERIOR RT BUTTOCK ORDER NUMBER(s): [id number], ACCESSION NUMBER(s): [id number] Technique: Real-time ultrasound imaging of the right gluteal region of interest was performed with grayscale and color Doppler. Indication: ABSCESS INFERIOR RT BUTTOCK Comparison: None Findings: Sonographic images of the right inguinal region of interest were obtained. There is a hypoechoic collection measuring 1.2 x 0.4 cm with surrounding vascularity, likely representing phlegmon/abscess. There is extensive surrounding soft tissue edema and hyperemia. There are echogenic foci within the subcutaneous tissues consistent with air/gas. Correlate exclude necrotizing infections. Impression: As above ATED BY: TRAVIS GOODE MD DICTATED DATE/TIME: 02/12/25 1413 SIGNED BY: TRAVIS GOODE MD SIGNED DATE/TIME: 02/12/25 1413 PATIENT: VALERIE RICE ACCT: [id number] UNIT: [id number] : 1950 [facility]: [facility] AGE / SEX: 74 / F ADM STATUS: ADM IN SERVICE 0004 ORDERING PHYSICIAN: MIRIAM RUBI PROCEDURE(s): CXR1 - CHEST XRAY 1 VIEW REASON: ?PNA ORDER NUMBER(s): [id number], ACCESSION NUMBER(s): [id number] CHEST RADIOGRAPH Indication: PNA Technique: Single frontal view of the chest was obtained Comparison: None IMPRESSION: Heart appears prominent in size. The lungs appear clear without focal airspace opacity, effusion, or pneumothorax ATED BY: LYDIA MCINTYRE MD DICTATED DATE/TIME: 02/12/25306 SIGNED BY: LYDIA MCINTYRE MD SIGNED DATE/TIME: 02/12/25306 PATIENT: VALERIE RICE ACCT: [id number] UNIT: [id number] : 1950 LOC: [facility] ROOM / BED: [address] [place] [address] / A AGE / SEX: 74 / F ADM STATUS: ADM IN SERVICE 2332 ORDERING PHYSICIAN: MIRIAM RUBI PROCEDURE(s): HWOCT - HEAD WITHOUT CONTRAST REASON: History of fall ORDER NUMBER(s): [id number], ACCESSION NUMBER(s): [id number] CLINICAL HISTORY: History of fall TECHNIQUE: Helical imaging carried out from skull base to vertex without intravenous contrast. This exam was performed according to our departmental dose optimization program. Up-to-date CT equipment and radiation dose reduction techniques are utilized as appropriate. CTDIVol: 64.4 mGy DLP: 1267.55 mGy-cm WID: COMPARISON: None FINDINGS: Mild cerebral volume loss with concordant prominence of the subarachnoid spaces and ventricles. Hojk-nw-ixpwqzdu patchy low attenuation in the cerebral white matter consistent with nonspecific white matter disease. There is no midline shift or mass effect. The waldron white matter interfaces are maintained. The basal cisterns are patent. There is no evidence of acute intracranial hemorrhage or extra-axial fluid collection. Small left mastoid air cell effusion. The right mastoid air cells and visualized paranasal sinuses are well-aerated IMPRESSION: No acute intracranial abnormality. Mild cerebral volume loss and fuos-nr-dnimmyvs chronic microvascular ischemic change. ATED BY: SCOTT POLO MD DICTATED DATE/TIME: 02/12/25104 SIGNED BY: SCOTT POLO MD SIGNED DATE/TIME: 02/12/25104 CC: PATIENT: VALERIE RICE ACCT: [id number] UNIT: [id number] : 1950 LOC: [facility] ROOM / BED: [address] [place] [address] AGE / SEX: 74 / F ADM STATUS: ADM IN SERVICE 31 ORDERING PHYSICIAN: MIRIAM RUBI RESIDENT PROCEDURE(s): RANK2 - R ANKLE 2 VIEW XRAY REASON: fall ORDER NUMBER(s): [id number], ACCESSION NUMBER(s): [id number] EXAM: XY R ANKLE 2 VIEW XRAY HISTORY: fall COMPARISON: None TECHNIQUE: Three views of the right ankle were performed. IMPRESSION: Examination is severely limited secondary to patient positioning. There is chronic appearing deformity and collapse of the talus. The calcaneus has abnormal morphology which appears likely chronic. It is impossible to exclude acute on chronic subluxation / dislocation or fracture versus chronic changes. Noncontrast CT is recommended. ATED BY: LYDIA MCINTYRE MD DICTATED DATE/TIME: 02/12/25250 SIGNED BY: LYDIA MCINTYRE MD SIGNED DATE/TIME: 02/12/25250 CC: RUN DATE: 02/17/25 PAGE 1 RUN TIME: 12[address] [facility] [address] [place] [address] Shona Mueller M.D., Laboratory Electrostatic Powder Coating Technician - PATIENT: VALERIE RICE ACCT: [id number] LOC: [facility] U: [id number] AGE/SX: 74/F ROOM: 027 RE02/11/[address]: JUAN RAMON SCHMID RESI : 1950 BED: A DIS: STATUS: ADM IN TLOC: - SPEC #: [id number] DK: 02/14/25 STATUS: RES REQ #: [id number] RECD: 02/14/[address] [facility] [address]: HECTOR RÍOS MD SOURCE: OTHER ENTR: 02/14/[address]: LUKAS RIVER MD SPDESC: ANAI WHITMORE Jr., MD PHYSICIAN,MEAGAN YATES RESIDENT ORDERED: RTEC, GS, ANAECUL COMMENTS: Has specimen been collected/obtained? Y Specimen Comment: RIGHT POSTERIOR THIGH ABSCESS - Procedure Result - Gram Stain Final RESULT Moderate Red Blood Cells Seen Rare White Blood Cells Seen Rare Gram Negative Rods Anaerobic Culture Preliminary Report Screening for Possible Anaerobes Aerobic Culture Preliminary Report Rare growth: Coagulase Negative Staphylococcus Susceptibility testing not routinely done on this isolate. Rare growth: Possible Enterococcus species Identification and Susceptibilty test to follow. RUN DATE: 02/15/25 PAGE 1 RUN TIME: 115[address] [facility] [address] [place] [address] Shona Mueller M.D., Laboratory Electrostatic Powder Coating Technician - PATIENT: VALERIE RICE ACCT: [id number] LOC: [facility] U: [id number] AGE/SX: 74/F ROOM: [facility] RE02/11/[address]: MEAGAN BRICENO : 1950 BED: A DIS: STATUS: ADM IN TLOC: - SPEC #: [id number] DK: 02/12/25 STATUS: DESIREE REQ #: [id number] RECD: 02/12/[address]: MIRIAM RUBI RESIDENT SOURCE: [facility] ENTR: 02/11/[address]: ISABEL COLLINS [facility]: DENICASSIDY ORDERED: RACHEAL w/ GS - Procedure Result - Gram Stain Final RESULT Rare Red Blood Cells Seen Rare White Blood Cells Seen Rare Gram Positive Cocci in pairs Wound Culture Final Report Few growth: Viridans Streptococcus Group Susceptibility testing not routinely done on this isolate. Organism 1 Staphylococcus aureus QUANTITATION RARE GROWTH: Organism 2 Enterococcus faecalis QUANTITATION GROWTH FROM BROTH SUBCULTURE: NOTE: Staphylococcus aureus - Contact Microbiology Lab if Penicillin result is needed. Rifampin should not be used alone for antibiotic therapy. CONTINUED ON NEXT PAGE RUN DATE: 02/15/25 PAGE 2 RUN TIME: 115[address] [facility] [address] [place] [address] Shona Mueller M.D., Laboratory Electrostatic Powder Coating Technician - SPEC: [id number] PATIENT: VALERIE RICE [id number] (Continued) - - Procedure Result - Wound Culture Final (continued) S AUREUS ENTFAECAL M.I.C. RX M.I.C. RX --------- --- --------- --- Amoxicillin/ K Clavulanate <=4/2 S Ampicillin <=2 S Ampicillin/Sulbactam <=8/4 S Cefazolin <=4 S >16 R Ciprofloxacin <=1 S Clindamycin <=0.5 S >4 R Daptomycin 1 S 2 S Erythromycin <=0.5 S 1 I Gentamicin Synergy Screen <=500 S Levofloxacin <=1 S Linezolid 2 S Oxacillin <=0.25 S Penicillin 2 S Rifampin <=1 S >2 R Tetracycline <=4 S Trimethoprim/Sulfamethoxazole <=0.5/9.5 S >2/38 R Vancomycin 2 S 2 S RUN DATE: 02/15/25 PAGE 1 RUN TIME: 115[address] [facility] [address] [place] [address] Shona Mueller M.D., Laboratory Electrostatic Powder Coating Technician - PATIENT: VALERIE RICE ACCT: [id number] LOC: [facility] U: [id number] AGE/SX: 74/F ROOM: [facility] RE02/11/[address]: MEAGAN BRICENO : 1950 BED: A DIS: STATUS: ADM IN TLOC: - SPEC #: [id number] DK: 02/11/25 STATUS: COMP REQ #: [id number] RECD: 02/11/[address] [facility] [address]: MIRIAM RUBI RESIDENT SOURCE: VOID ENTR: 02/11/[address]: ISABEL COLLINSES: CASSIDY CHEEMA ORDERED: Terri - Procedure Result - Urine Bacterial Culture Final Report No growth after 48 hours of incubation RUN DATE: 02/16/25 PAGE 1 RUN TIME: [address] [facility] [address] [place] [address] Shona Mueller M.D., Laboratory Electrostatic Powder Coating Technician - PATIENT: VALERIE RICE ACCT: [id number] LOC: [facility] U: [id number] AGE/SX: 74/F ROOM: 027 RE02/11/[address]: JUAN RAMON SCHMID : 1950 BED: A DIS: STATUS: ADM IN TLOC: - SPEC #: [id number] DK: 02/11/25 STATUS: DESIREE REQ #: [id number] RECD: 02/11/[address] [facility] [address]: CASSIDY CHEEMA SOURCE: BLOOD ENTR: 02/11/25-[address] [facility] [address]: ISRRAEL FARMER: ORDERED: BCULT - Procedure Result - Blood Culture Final NO GROWTH AFTER 5 DAYS OF INCUBATION. NO GROWTH AFTER 5 DAYS OF INCUBATION. Patient: VALERIE RICE Acct: [id number] : 1950 Loc: [facility] Age/Sex: 74/F Room: [facility] / Bed: A Attending Phy: MEAGAN BRICENO RESIDENT Operative Report - 2 Report Details Date: 02/14/25 Preop Diagnosis: Right posterior thigh abscess with necrotic tissue Postop Diagnosis: Same Surgeon: Hector Ríos MD Mangle Roll Operator: None Anesthesiologist: Everette Grant CRNA Anesthesia: Mac, Local Drains: None Consent: The surgery and its risks including but not limited to infection, bleeding, open surgical site requiring wound care, possible perioperative DE or stroke were explained to the patient. All questions were answered to her satisfaction. She expressed verbal understanding and wished to proceed with the surgery. Complications: None Estimated Blood Loss: 10 mL Fluids: 200 mL crystalloids Name of Procedure Performed Incision and drainage of right posterior abscess with necrotic tissue debridement Procedure Details Procedure Details: After induction of monitored anesthesia, patient was placed in a left lateral decubitus position and her right posterior thigh was prepped and draped in standard surgical fashion. 30 mL of 1% lidocaine with epinephrine was used as local anesthesia. Patient had about a 4 cm necrotic eschar in the center of her inflamed tissue in the posterior aspect of her right thigh. The necrotic tissue was excised revealing some purulent fluid in the soft tissue which was swabbed for Gram stain and culture. The abscess cavity was then vigorously curetted and some of the necrotic tissue at the base were excised until healthier tissue was encountered. The surgical site was then irrigated with diluted Betadine irrigation and packed with moist gauze dressing soaked in Betadine irrigation. Surgical site was cleaned and dried and dressings were applied. Sponge, needle, instrument count at the end of the case were reported to be correct by the nursing staff. Patient tolerated procedure well and was transferred to recovery in stable condition. Specimen: Gram stain and culture of the right posterior thigh abscess. Tissue at the edge of the wound Condition Stable Disposition 2 Still a Patient HECTOR RÍOS MD Feb 14, 2025 13:45 DICTATED BY:HECTOR RÍOS MD DICTATED DATE/TIME:02/14/25 134 ELECTRONICALLY SIGNED BY:HECTOR RÍOS MD 02/14/25 134 ELECTRONICALLY CO-SIGNED BY: Condition at Discharge: Stable Final Diagnosis/Problems List Primary Diagnoses: 1. Right gluteal abscess, post-incision and drainage 2. Cellulitis secondary to soft tissue infection 3. Right foot subacute fracture Secondary Diagnoses: 4. Restless leg syndrome 5. Hypertension 6. Type 2 Diabetes Mellitus 7. Obstructive Sleep Apnea (CPAP use) 8. Multiple sclerosis 9. Hyperlipidemia 10. History of fall 11. Impaired mobility, ADL dependence 12. Acute pain syndrome 13. History of recurrent UTI 14. Anemia of chronic disease Discharge Disposition: [facility] Facility Discharge Instruct/Medications Diet: Cardiac 2g Na,low cholest Activity: No Restrictions, As Tolerated Follow Up/Referral: General Surgery: Follow up in 2 weeks for post-operative wound evaluation with Dr. Jain or surgical clinic. Primary Care Physician (PCP): Follow up within 7 days of discharge for comprehensive review of medications, chronic condition management, and coordination of ongoing care. Podiatry: As needed if worsening foot pain or brace-related issues occurno current need for surgical intervention. Neurology: Routine outpatient follow-up for multiple sclerosis and restless leg syndrome. Home Health Services: Will continue wound care and dressing changes if required post-SNF stay. SNF Rehabilitation: Short-term rehab planned for one week with physical therapy, ADL support, and wound care. employee services manager arranged transportation. Medications: The patient will continue the following medications upon discharge: * Augmentin 875 mg by mouth twice daily for 14 days for soft tissue infection * Losartan 50 mg by mouth daily for blood pressure control * Atorvastatin 20 mg by mouth at bedtime for hyperlipidemia * Trazodone 100 mg by mouth at bedtime for sleep * Gabapentin 600 mg by mouth three times daily for neuropathic pain and restless leg syndrome * Polyethylene glycol (Miralax) 17 grams by mouth daily as needed for constipation * Baclofen 10 mg by mouth twice daily as needed for restless leg syndrome * Morphine sulfate 1 mg IV every 6 hours as needed for severe pain * [place] (hydrocodone-acetaminophen 10/325) one tablet by mouth every 6 hours as needed for moderate to severe pain * Acetaminophen 650 mg by mouth every 6 hours as needed for pain or fever * Pantoprazole 40 mg by mouth daily for stress ulcer prophylaxis * Ropinirole 0.5 mg by mouth at bedtime for restless leg syndrome * Continue home medications also Scheduled Metformin Hydrochloride (Metformin Hcl), 1 TAB PO BID, (Reported) Tizanidine Hydrochloride (Zanaflex), 1 CAP PO QID, (Reported) Miscellaneous Medications Ropinirole Hydrochloride (Ropinirole Hcl), 1 TAB PO, (Reported) Tramadol Hcl (Tramadol Hcl), 50 MG PO, (Reported) Discharge Statement: "Patient was advised to return to the ER or call 911 if any headaches, dizziness, shortness of breath, chest pain, abdominal pain, bleeding, fevers, or worsening of medical condition. Patient was counseled about treatment plan, medications, possible side effects, patientverbalized understanding. All questions were answered to the best of my ability. This discharge took greater then 30 minutes in planning, reviewing documentation, counseling the patient, and discussing with other team members." ASSESSMENT ASSESSMENT Assessment Primary Diagnoses: 1. Right gluteal abscess, post-incision and drainage 2. Cellulitis secondary to soft tissue infection 3. Right foot subacute fracture Secondary Diagnoses: 4. Restless leg syndrome 5. Hypertension 6. Type 2 Diabetes Mellitus 7. Obstructive Sleep Apnea (CPAP use) 8. Multiple sclerosis 9. Hyperlipidemia 10. History of fall 11. Impaired mobility, ADL dependence 12. Acute pain syndrome 13. History of recurrent UTI 14. Anemia of chronic disease Date of Service: Feb 17, 2025 Billing Provider: LUKAS RIVER MD Common Visit Codes: 99052-UXC/OBS DISCH DAY >30min JUAN RAMON SCHMID RESIDENT Feb 17, 2025 19:04 LUKAS RIVER MD Feb 23, 2025 21:21
[2025-02-18] VITALS (8 sets, daily range): BP systolic 122–143; BP diastolic 68–90; PULSE 64–74; RESP 18; TEMP 97–97.9; O2SAT 90–94
[2025-02-18] MEDS: VANCOMYCIN 1GM/200ML PM 200 ML IV SCH (14:19)
--- NOTE | 2025-02-18 17:27 | DVHPNRES ---
Progress Note Date Seen: Feb 18, 2025 Resident Creating Document: JUAN RAMON SCHMID RESIDENT Has the PT tested + for MRSA If YES, has PT been informed?: No Medical Necessity Reason Pt with a Central, PICC or Fol: Yes The following are medically ne: Elizondo Catheter Reason for elizondo catheter: Bladder Retention/Obstruc Subjective Review of Systems Patient is 74 years old female with past medical history of hypertension, diabetes mellitus, multiple sclerosis diagnosed in 1988, restless leg syndrome, carvedilol syndrome, chronic back pain, osteoporosis, obstructive sleep apnea on CPAP at night/or NC O2 3 L/min at night history of recurrent UTI came with a complaint of wound in the right buttock. As per patient she started developing small wound of the right lower buttock which gradually got worse and bigger. Yesterday she had this wound//abscess drained by friend at home which did not lots of passes. Patient also had a fever at home up to 102.5 degree F chills. Patient reported right buttock heart when sitting or putting pressure on the buttock. Patient also reported that she had a fall 2 days before at home when she was trying to transfer from bed to the chair and hit her right leg and head. Patient also reported urinary incontinence for a while. Patient denied any chest pain , diarrhea, coughing, abdominal pain, acute joint redness or swelling. Initial lab workup revealed leukocytosis WBC 12.5, hemoglobin 10.2, lactic acidosis with lactic acid 2.5,HbA1c 6.3, urinalysis revealed leukocyte esterase 1+, WBC 36, EKG revealed junctional tachycardia 02/12/25 Patient was examined at the bedside today. She reports worsening severe pain and swelling over the right buttock and lower gluteal region secondary to an abscess that was manually drained by a friend at home. She endorses persistent drainage, redness, warmth, and increasing discomfort. Additionally, the patient complains of bilateral lower extremity swelling described as "non-fitting" edema. She also notes pain in her right lower extremity, particularly the great toe region, following a fall 2 days ago. She denies chest pain, cough, or abdominal pain. She continues to have urinary incontinence. No nausea, vomiting, dizziness, headache, or visual changes reported today. She requests nursing assistance for wound care and toileting due to discomfort. 02/12/25 The patient was re-examined at the bedside today. She continues to experience severe right buttock pain due to a draining abscess. Morphine was administered overnight for pain control, with subsequent improvement in blood pressure. RN confirms that wound care is ongoing with application of Medihoney, and the wound appears clean but still draining. The patient reports worsening symptoms of restless leg syndrome. Baclofen was administered for restless leg syndrome. Blood pressure has fluctuated today between 138/77 and 158/89. She received 2L nasal cannula overnight with SpO? maintained at 98%. WBC count has improved to 9.5, CMP remains stable. Wound culture preliminary shows rare growthpossible Staphylococcus aureus. Gram stain showed rare RBCs, WBCs, and rare gram-positive cocci in pairs. Blood cultures remain negative at 48 hours. Awaiting evaluation by general surgery. 02/15/25 Patient was evaluated at the bedside today. She reports that her pain level has improved significantly to 34/10 following recent interventions. However, she had trouble sleeping last night due to her CPAP machine settings not being optimal, and she is awaiting input from her son to verify the correct settings. The right gluteal abscess underwent incision and drainage (I&D) on 02/14/[address] Jain. Wound appears clean with drainage decreasing; home health wound care and dressing changes have been arranged upon discharge. Discharge is deferred today due to severe right foot pain secondary to a subacute fracture. Podiatry, orthopedic, and physical therapy evaluations are still pending. The patient remains hemodynamically stable with improving leukocytosis. Wound culture grew Viridans group Streptococci and Staphylococcus aureus, both of which are sensitive to clindamycin, erythromycin, oxacillin, TMP-SMX, vancomycin, and ampicillin-sulbactam. Blood and urine cultures remain negative. Pain is currently well-managed with Narco, morphine, and acetaminophen. She remains on vancomycin, cefepime, clindamycin and ropinirole. 02/16/25 he patient was seen and evaluated at the bedside today. She is in stable condition and reports that her pain is currently well-controlled at 3/10. Daily dressing changes have been performed, and the right gluteal wound appears clean with minimal drainage. She is now ambulating minimally with assistance and has participated in physical therapy (PT) evaluation. The PT team recommends a short-term stay at a alf facility (SNF) for 1 week for rehabilitation and assistance with ADLs, in addition to continued wound care and dressing changes. A podiatry consult was also completed today for her right foot pain secondary to a recent subacute fracture. No surgical intervention is recommended; the patient is advised to use [id number] arch supports and braces. The patient reports satisfaction with pain control and nursing care. emergency services director is actively working on SNF placement and transportation. Patient currently receives home health visits 3x/week for personal care. 02/18/25 The patient was evaluated at the bedside today. She is clinically stable, tolerating oral intake, and in no acute distress. She continues to receive daily wound care, and her pain remains well-controlled at 3/10. Dressing changes are being performed with good wound healing. Physical therapy has cleared the patient for discharge to SNF for short-term rehabilitation, wound care, and ADL assistance. Podiatry has cleared her for non-surgical conservative management of the right foot subacute fracture with arch support and bracing. Patient is currently awaiting insurance authorization for SNF transfer. Social work and case management are actively coordinating the logistics. No new complaints reported today. Review of Systems (ROS): * General: Stable, afebrile, improved pain * Skin: Wound healing, no discharge or erythema * CV: Denies chest pain, palpitations * Resp: No shortness of breath or cough * GI: Tolerating diet, no nausea, vomiting, or abdominal pain * : No dysuria or hematuria * Neuro: Alert and oriented, no weakness or sensory loss * MSK: Right foot pain controlled, ambulating with assistance * Psych: Mood stable, cooperative * Sleep: Restful with medication support * Functional: Requires SNF-level care for mobility and ADLs Objective vital signs Vital Sign Date Time Temp Pulse Resp B/P (MAP) Pulse Ox O2 Delivery O2 Flow Rate FiO2 02/18/25 16:30 97.5 71 18 128/71 (90) 93 97.5 02/18/25 08:00 Room Air* 0 21 Total Intake and Output 02/17/25 02/17/25 02/18/25 15:00 23:00 07:00 Intake Total 950 ml 250 ml Output Total 1900 ml 1000 ml Balance -950 ml -750 ml medications Current Medications Medications Dose Ordered Sig/Paulo Route Start Time Stop Time Status Last Admin Dose Admin Acetaminophen 650 mg Q6HP PRN PO 02/11/25 23:30 Enoxaparin Sodium 40 mg HS SC 02/12/25 22:00 02/17/25 21:18 40 MG Vancomycin HCl 0 ml @ 0 mls/hr UD IV 02/11/25 23:30 Sodium Chloride 1,000 ml @ 125 mls/hr Q8H IV 02/11/25 23:30 02/18/25 08:17 125 MLS/HR Pantoprazole Sodium 40 mg DAILY@0600 PO 02/12/25 06:00 02/18/25 05:38 40 MG Diagnostic Test (Pha) 1 strip ACHS 02/12/25 07:00 02/18/25 17:24 1 STRIP Insulin Human Regular ACHS SC 02/12/25 07:00 02/18/25 11:20 4 UNITS Dextrose 50 ml UD PRN IV 02/11/25 23:30 Trazodone HCl 100 mg HS PO 02/12/25 22:00 02/17/25 21:07 100 MG Atorvastatin Calcium 20 mg HS PO 02/12/25 22:00 02/17/25 21:08 20 MG Losartan Potassium 50 mg DAILY PO 02/13/25 10:00 02/18/25 10:02 50 MG Acetaminophen/ Hydrocodone Bitart 1 tab Q6HP PRN PO 02/12/25 12:45 02/18/25 15:47 1 TAB Morphine Sulfate 1 mg Q4HP PRN IV 02/12/25 12:45 02/18/25 11:16 1 MG Hydralazine HCl 10 mg Q6HP PRN IV 02/12/25 12:45 Gabapentin 600 mg TID PO 02/12/25 14:00 02/18/25 14:08 600 MG Baclofen 10 mg BID PRN PO 02/12/25 13:15 02/18/25 08:30 10 MG Polyethylene Glycol 17 gm DAILYPRN PRN PO 02/12/25 13:15 02/13/25 21:34 17 GM Clindamycin Phosphate 50 ml @ 50 mls/hr Q8HR IV 02/12/25 22:00 02/18/25 14:08 50 MLS/HR Patient Own Medication 1 HS PO 02/13/25 22:00 02/17/25 21:06 1 Cefepime HCl 50 ml @ 12.5 mls/hr Q8H IV 02/13/25 23:00 02/18/25 15:23 12.5 MLS/HR Vancomycin HCl 200 ml @ 160 mls/hr Q10H IV 02/18/25 12:00 02/18/25 14:19 160 MLS/HR Examination General: Alert, conversant, NAD HEENT: Normocephalic, atraumatic CV: RRR, no murmurs, pulses intact Resp: Clear breath sounds bilaterally GI: Soft, non-tender, normoactive bowel sounds Skin: Clean right gluteal wound post-I&D, no erythema, healing well Neuro: Cranial nerves intact, oriented 3 MSK: Right wire winding machine tender, no new swelling or erythema, ambulating with assistance Extremities: No signs of DVT, bilateral LE edema mild and stable laboratory and microbiology Laboratory Tests 02/18/25 05:53 02/17/25 04:31 Test 02/17/25 04:31 Range/Units Serum Glucose 120 H 74-106 mg/dL Microbiology Date/Time Source Procedure Growth Status 02/14/25 13:31 Other Gram Stain - Final Resulted 02/14/25 13:31 Other Anaerobic Culture - Preliminary Resulted 02/14/25 13:31 Aerobic Culture - Final Enterococcus faecalis Resulted 02/11/25 20:46 Voided Urine Urine Culture - Final Complete 02/11/25 18:40 Blood Blood Culture - Final NO GROWTH AFTER 5 DAYS OF INCUBATION. Complete Problem List/Assessment/Plan Problem List/Assessment/Plan Assessment/Findings ): Sepsis likely secondary to right gluteal abscess with early signs of soft tissue necrosis. Right buttock abscess with probable secondary infection and necrotizing changes per U/S. Cellulitis of the gluteal region Cellulitis of the gluteal region Right foot subacute fracture, Impaired mobility and ADL dependence Bilateral lower extremity edema - likely multifactorial (infection, dependent edema, poor mobility, venous stasis). Junctional tachycardia, rate 144 bpm likely secondary to systemic illness/stress response. Urinary tract infection pyuria and hematuria with history of incontinence and recurrent UTIs. History of mechanical fall with right lower extremity trauma. Type 2 diabetes mellitus well-controlled inpatient on sliding scale insulin. Hypertension currently elevated; continues on losartan. Obstructive sleep apnea on CPAP. Multiple sclerosis chronic, stable. Osteoporosis chronic, Hyperlipidemia on atorvastatin. Assessment & Plan (System-reis): 1. Right gluteal abscess (post-I&D 02/14/25) * Culture shows Viridans strep and Staph aureus sensitivities documented * Continue Vancomycin + Cefepime + Clindamycin * Wound clean, drainage decreased Continue dressing changes and Medihoney application daily. * Monitor wound site for signs of infection (redness, drainage, fever). * Post-I&D wound healing well no signs of necrotizing soft tissue infection. * General Surgery follow-up in 2 weeks 2. Right foot subacute fracture with pain * Musculoskeletal / Rehab / Mobility: * Right foot subacute fracture managed with OTC arch supports and brace. * Cleared by podiatry for discharge with conservative care. * PT recommends 1-week SNF rehab for strength training and gait recovery. * Ambulating with walker and staff assistance. Musculoskeletal * Continue pain control: Narco Q6H PRN, Morphine PRN, Tylenol * OTC brace and inserts as per podiatry * No surgical intervention needed Functional / Rehab * SNF referral for 1-week rehab and wound care * Continue home health plan if SNF not available 3. Insomnia/Sleep Apnea CPAP settings mismatch * Patient unable to use CPAP due to incorrect pressure settings * Awaiting family input * Consider respiratory therapy assistance if issue persists 4. Hypertension * BP stable today (137/70 159/81) * Continue Losartan 50 mg PO daily * Monitor BP 5. Diabetes Mellitus Type 2 * On sliding scale insulin * Continue Insulin Regular ACHS, monitor POC BG 6. Restless Leg Syndrome * Ropinirole initiated, Baclofen continued * Monitor for symptom relief 7. Leukocytosis improving * WBC 7.5 continue trending labs * No signs of new infection 8. Prophylaxis / Other Medications * Enoxaparin 40 mg SC daily DVT prophylaxis * Pantoprazole 40 mg daily GI protection * Continue atorvastatin, trazodone, gabapentin, miralax, hydralazine * Clindamycin IV 50 mL/hr added per wound culture sensitivity * Dextrose PRN for hypoglycemia Orders to Place: Continue current antibiotics: Vancomycin, Cefepime, Clindamycin?? Continue pain meds: Narco Q6H PRN, Morphine PRN, Acetaminophen Q6H PRN Continue supportive meds: Losartan, Atorvastatin, Pantoprazole, Trazodone, Baclofen, Gabapentin, Hydralazine, Miralax, Insulin Continue Enoxaparin 40 mg SC PT, Podiatry, consults for subacute right foot fracture Monitor: BP Q6H, POC glucose ACHS, WBC daily, BMp, Continue Respiratory Therapy referral if CPAP settings unresolved .Plan Summary: Patient is doing well with stable vitals, pain control, clean wound, and completed consults. She is not safe for discharge home and is pending SNF placement for rehab, wound care, and ADL assistance. Awaiting social work update. Podiatry cleared her with conservative management. No surgical intervention needed. Medical issues stable on current treatment. Plan discussed with Attending Physician , nursing staff, Total time spent on patient evaluation, chart review, assessment and plan, discussion discussion >35 minutes Plan discussed with: Patient, Other (RN) Plan discussed with: Patient Dietary Evaluation Review Recommendations by RD: Dietary education by RD, Protein Supplementation Comments: 1) Initiate MVI @ 1 tb qd 2) Initiate vitamin C @ 500 mg bid and zinc sulfate @ 220 mg qd for 7 days 3) Initiate mer @ 1 pk bid 4) Encourage optimal PO intake 5) Refer to outpatient RD/[facility] for weight management 6) Continue to monitor I&O, labs, and skin integrity Expected Outcomes/Goals: 1) appetite and labs to improve 2) wound to improve 3) f/u in 3-5 days Date of Service: Feb 18, 2025 Billing Provider: LUKAS RIVER MD Common Visit Codes: [id number] INP/OBS CARE(HIGH) JUAN RAMON SCHMID RESIDENT Feb 18, 2025 17:27 LUKAS RIVER MD Feb 23, 2025 01:06
[2025-02-19] VITALS (8 sets, daily range): BP systolic 131–152; BP diastolic 67–88; PULSE 64–76; RESP 18–19; TEMP 96.8–99; O2SAT 92–99
--- NOTE | 2025-02-19 10:03 | DVHPNRES ---
Progress Note Date Seen: Feb 19, 2025 Resident Creating Document: ANGELO GUEVARA RESIDENT Has the PT tested + for MRSA If YES, has PT been informed?: No Medical Necessity Reason Pt with a Central, PICC or Fol: No The following are medically ne: Elizondo Catheter Reason for elizondo catheter: Bladder Retention/Obstruc Subjective Review of Systems The patient is 74 years old female with past medical history of hypertension, diabetes mellitus, multiple sclerosis diagnosed in 1988, restless leg syndrome, carvedilol syndrome, chronic back pain, osteoporosis, obstructive sleep apnea on CPAP at night/or NC O2 3 L/min at night history of recurrent UTI came with a complaint of wound in the right buttock. As per patient she started developing small wound of the right lower buttock which gradually got worse and bigger. Yesterday she had this wound//abscess drained by friend at home which did not lots of passes. Patient also had a fever at home up to 102.5 degree F chills. Patient reported right buttock heart when sitting or putting pressure on the buttock. Patient also reported that she had a fall 2 days before at home when she was trying to transfer from bed to the chair and hit her right leg and head. Patient also reported urinary incontinence for a while. Patient denied any chest pain , diarrhea, coughing, abdominal pain, acute joint redness or swelling. Initial lab workup revealed leukocytosis WBC 12.5, hemoglobin 10.2, lactic acidosis with lactic acid 2.5,HbA1c 6.3, urinalysis revealed leukocyte esterase 1+, WBC 36, EKG revealed junctional tachycardia 02/12/25 Patient was examined at the bedside today. She reports worsening severe pain and swelling over the right buttock and lower gluteal region secondary to an abscess that was manually drained by a friend at home. She endorses persistent drainage, redness, warmth, and increasing discomfort. Additionally, the patient complains of bilateral lower extremity swelling described as "non-fitting" edema. She also notes pain in her right lower extremity, particularly the great toe region, following a fall 2 days ago. She denies chest pain, cough, or abdominal pain. She continues to have urinary incontinence. No nausea, vomiting, dizziness, headache, or visual changes reported today. She requests nursing assistance for wound care and toileting due to discomfort. 02/12/25 The patient was re-examined at the bedside today. She continues to experience severe right buttock pain due to a draining abscess. Morphine was administered overnight for pain control, with subsequent improvement in blood pressure. RN confirms that wound care is ongoing with application of Medihoney, and the wound appears clean but still draining. The patient reports worsening symptoms of restless leg syndrome. Baclofen was administered for restless leg syndrome. Blood pressure has fluctuated today between 138/77 and 158/89. She received 2L nasal cannula overnight with SpO? maintained at 98%. WBC count has improved to 9.5, CMP remains stable. Wound culture preliminary shows rare growthpossible Staphylococcus aureus. Gram stain showed rare RBCs, WBCs, and rare gram-positive cocci in pairs. Blood cultures remain negative at 48 hours. Awaiting evaluation by general surgery. 02/15/25 Patient was evaluated at the bedside today. She reports that her pain level has improved significantly to 34/10 following recent interventions. However, she had trouble sleeping last night due to her CPAP machine settings not being optimal, and she is awaiting input from her son to verify the correct settings. The right gluteal abscess underwent incision and drainage (I&D) on 02/14/[address] Jain. Wound appears clean with drainage decreasing; home health wound care and dressing changes have been arranged upon discharge. Discharge is deferred today due to severe right foot pain secondary to a subacute fracture. Podiatry, orthopedic, and physical therapy evaluations are still pending. The patient remains hemodynamically stable with improving leukocytosis. Wound culture grew Viridans group Streptococci and Staphylococcus aureus, both of which are sensitive to clindamycin, erythromycin, oxacillin, TMP-SMX, vancomycin, and ampicillin-sulbactam. Blood and urine cultures remain negative. Pain is currently well-managed with Narco, morphine, and acetaminophen. She remains on vancomycin, cefepime, clindamycin and ropinirole. 02/16/25 he patient was seen and evaluated at the bedside today. She is in stable condition and reports that her pain is currently well-controlled at 3/10. Daily dressing changes have been performed, and the right gluteal wound appears clean with minimal drainage. She is now ambulating minimally with assistance and has participated in physical therapy (PT) evaluation. The PT team recommends a short-term stay at a shelter facility (SNF) for 1 week for rehabilitation and assistance with ADLs, in addition to continued wound care and dressing changes. A podiatry consult was also completed today for her right foot pain secondary to a recent subacute fracture. No surgical intervention is recommended; the patient is advised to use [id number] arch supports and braces. The patient reports satisfaction with pain control and nursing care. community services coordinator is actively working on SNF placement and transportation. Patient currently receives home health visits 3x/week for personal care. 02/18/25 The patient was evaluated at the bedside today. She is clinically stable, tolerating oral intake, and in no acute distress. She continues to receive daily wound care, and her pain remains well-controlled at 3/10. Dressing changes are being performed with good wound healing. Physical therapy has cleared the patient for discharge to SNF for short-term rehabilitation, wound care, and ADL assistance. Podiatry has cleared her for non-surgical conservative management of the right foot subacute fracture with arch support and bracing. Patient is currently awaiting insurance authorization for SNF transfer. Social work and case management are actively coordinating the logistics. No new complaints reported. 02/19/25 The patient was evaluated at the bedside today. She is clinically stable, tolerating oral intake, and in no acute distress. She continues to receive daily wound care, and her pain remains well-controlled at 3/10. Dressing changes are being performed with good wound healing. Physical therapy has cleared the patient for discharge to SNF for short-term rehabilitation, wound care, and ADL assistance. Podiatry has cleared her for non-surgical conservative management of the right foot subacute fracture with arch support and bracing. Patient is currently awaiting insurance authorization for SNF transfer. Social work and case management are actively coordinating the logistics. No new complaints reported. Review of Systems (ROS): * General: Stable, afebrile, improved pain * Skin: Wound healing, no discharge or erythema * CV: Denies chest pain, palpitations * Resp: No shortness of breath or cough * GI: Tolerating diet, no nausea, vomiting, or abdominal pain * : No dysuria or hematuria * Neuro: Alert and oriented, no weakness or sensory loss * MSK: Right foot pain controlled, ambulating with assistance. * Psych: Mood stable, cooperative * Sleep: Restful with medication support * Functional: Requires SNF-level care for mobility and ADLs Objective vital signs Vital Sign Date Time Temp Pulse Resp B/P (MAP) Pulse Ox O2 Delivery O2 Flow Rate FiO2 02/19/25 08:30 98.9 73 18 131/67 (88) 92 98.9 02/19/25 08:16 Nasal Cannula* 2 28 Total Intake and Output 02/18/25 02/18/25 02/19/25 15:00 23:00 07:00 Intake Total 1700 ml 400 ml Output Total 900 ml 1850 ml Balance 800 ml -1450 ml medications Current Medications Medications Dose Ordered Sig/Paulo Route Start Time Stop Time Status Last Admin Dose Admin Acetaminophen 650 mg Q6HP PRN PO 02/11/25 23:30 Enoxaparin Sodium 40 mg HS SC 02/12/25 22:00 02/18/25 21:22 40 MG Vancomycin HCl 0 ml @ 0 mls/hr UD IV 02/11/25 23:30 Sodium Chloride 1,000 ml @ 125 mls/hr Q8H IV 02/11/25 23:30 02/19/25 08:08 125 MLS/HR Pantoprazole Sodium 40 mg DAILY@0600 PO 02/12/25 06:00 02/19/25 05:30 40 MG Diagnostic Test (Pha) 1 strip ACHS 02/12/25 07:00 02/19/25 05:54 1 STRIP Insulin Human Regular ACHS SC 02/12/25 07:00 02/19/25 05:58 2 UNITS Dextrose 50 ml UD PRN IV 02/11/25 23:30 Trazodone HCl 100 mg HS PO 02/12/25 22:00 02/18/25 21:23 100 MG Atorvastatin Calcium 20 mg HS PO 02/12/25 22:00 02/18/25 21:23 20 MG Losartan Potassium 50 mg DAILY PO 02/13/25 10:00 02/18/25 10:02 50 MG Acetaminophen/ Hydrocodone Bitart 1 tab Q6HP PRN PO 02/12/25 12:45 02/19/25 05:31 1 TAB Morphine Sulfate 1 mg Q4HP PRN IV 02/12/25 12:45 02/18/25 20:39 1 MG Hydralazine HCl 10 mg Q6HP PRN IV 02/12/25 12:45 Gabapentin 600 mg TID PO 02/12/25 14:00 02/19/25 05:30 600 MG Baclofen 10 mg BID PRN PO 02/12/25 13:15 02/18/25 08:30 10 MG Polyethylene Glycol 17 gm DAILYPRN PRN PO 02/12/25 13:15 02/13/25 21:34 17 GM Clindamycin Phosphate 50 ml @ 50 mls/hr Q8HR IV 02/12/25 22:00 02/19/25 05:29 50 MLS/HR Patient Own Medication 1 HS PO 02/13/25 22:00 02/18/25 21:56 1 Cefepime HCl 50 ml @ 12.5 mls/hr Q8H IV 02/13/25 23:00 02/19/25 06:02 12.5 MLS/HR Vancomycin HCl 200 ml @ 160 mls/hr Q10H IV 02/18/25 12:00 02/18/25 21:26 160 MLS/HR Examination Examination General: Alert, conversant, NAD HEENT: Normocephalic, atraumatic CV: RRR, no murmurs, pulses intact Resp: Clear breath sounds bilaterally GI: Soft, non-tender, normoactive bowel sounds Skin: Clean right gluteal wound post-I&D, no erythema, healing well Neuro: Cranial nerves intact, oriented 3 MSK: Right furnace operator and tender, no new swelling or erythema, ambulating with assistance Extremities: No signs of DVT, bilateral LE edema mild and stable, Right foot pain, with bruise over the right 1 metatarsal. laboratory and microbiology Laboratory Tests 02/19/25 04:43 02/17/25 04:31 Test 02/17/25 04:31 Range/Units Serum Glucose 120 H 74-106 mg/dL Microbiology Date/Time Source Procedure Growth Status 02/14/25 13:31 Other Gram Stain - Final Resulted 02/14/25 13:31 Other Anaerobic Culture - Preliminary Resulted 02/14/25 13:31 Aerobic Culture - Final Enterococcus faecalis Resulted 02/11/25 20:46 Voided Urine Urine Culture - Final Complete 02/11/25 18:40 Blood Blood Culture - Final NO GROWTH AFTER 5 DAYS OF INCUBATION. Complete Problem List/Assessment/Plan Problem List/Assessment/Plan Problem List/Assessment/Plan Assessment/Findings: 1. Sepsis likely secondary to right gluteal abscess with early signs of soft tissue necrosis. 2. Right buttock abscess with probable secondary infection and necrotizing changes per U/S. 3. Bilateral lower extremity edema - likely multifactorial (infection, dependent edema, poor mobility, CHF vs. venous stasis). 4. Junctional tachycardia, rate 144 bpm likely secondary to systemic illness/stress response. 5. Urinary tract infection pyuria and hematuria with history of incontinence and recurrent UTIs. 6. History of mechanical fall with right lower extremity trauma. 7. Type 2 diabetes mellitus well-controlled inpatient on sliding scale insulin. 8. Hypertension currently elevated; continues on losartan. 9. Obstructive sleep apnea on CPAP. 10. Multiple sclerosis chronic, stable. 11. Osteoporosis chronic, 12. Hyperlipidemia on atorvastatin. Plan (System-reis): Sepsis likely secondary to right gluteal abscess with early signs of soft tissue necrosis. * Continue IV Zosyn 3.375g Q8H and IV Vancomycin per protocol * Continue IV Clindamycin 900mg TID * Continue NS 125 mL/hr for hydration Right buttock abscess with probable secondary infection and necrotizing changes per U/S. * STAT Surgical consult for debridement of abscess vs. necrotizing fasciitis * Wound care consult for bedside management and debridement * Wound and blood cultures pending (preliminary: Staphilococcus aureus (+) * Daily CBC, BMP, lactate Bilateral lower extremity edema - likely multifactorial (infection, dependent edema, poor mobility, CHF vs. venous stasis) * Monitor for signs of fluid overload vs. cardiac cause of LE edema * Continue Losartan 50 mg daily * Monitor BP q6h, Pulmonary: * Continue CPAP at night as per home use * CXR showed cardiomegaly but clear lungs monitor for signs of fluid overload or infection * SpO2 9195% RA; continue monitoring Renal/Urinary: * UA suggestive of cystitis continue current empiric antibiotics * Encourage PO fluids Endocrine (DM2): * Continue Insulin Regular ACHS sliding scale * POC glucose monitoring most recent 166 mg/dL * HbA1c 6.3% controlled Neurology: * MS stable * CT head shows chronic ischemic changes; no acute bleed * Monitor neuro status given fall history GI/Nutrition: * Continue Pantoprazole 40 mg PO daily * Encourage PO intake * Consider nutrition consult if poor oral intake persists Musculoskeletal / Fall: * Ankle X-ray inconclusive CT recommended * Right great toe injury conservative management unless worsening * Physical therapy referral for mobility Prophylaxis: * Enoxaparin 40 mg SC daily for DVT prophylaxis * Pantoprazole for stress ulcer prophylaxis Plan: Discharge to SNF for rehabilitation and physical therapy. Plan discussed with Attending Physician Dr. Vides , nursing staff, Total time spent on patient evaluation, chart review, assessment and plan, discussion discussion >35 minutes Patient agrees with the plan. Full Code (+) Plan discussed with: Patient Dietary Evaluation Review Recommendations by RD: Dietary education by RD, Protein Supplementation Comments: 1) Initiate MVI @ 1 tb qd 2) Initiate vitamin C @ 500 mg bid and zinc sulfate @ 220 mg qd for 7 days 3) Initiate mer @ 1 pk bid 4) Encourage optimal PO intake 5) Refer to outpatient RD/CD[facility] for weight management 6) Continue to monitor I&O, labs, and skin integrity Expected Outcomes/Goals: 1) appetite and labs to improve 2) wound to improve 3) f/u in 3-5 days Date of Service: Feb 19, 2025 Billing Provider: LUKAS RIVER MD Common Visit Codes: [id number] INP/OBS CARE(HIGH) ANGELO GUEVARA RESIDENT Feb 19, 2025 10:03 LUKAS RIVER MD Feb 23, 2025 01:07
[2025-02-19] MEDS: VANCOMYCIN 1GM/200ML PM 200 ML IV SCH (18:25)
[2025-02-20] VITALS (7 sets, daily range): BP systolic 113–149; BP diastolic 69–86; PULSE 59–74; RESP 18–20; TEMP 36.8; O2SAT 87–99
[2025-02-20] MEDS: ACETAMINOPHEN 325 MG TAB PO PRN (01:34)
--- NOTE | 2025-02-20 07:00 | DVHPNRES ---
Progress Note Date Seen: Feb 20, 2025 Resident Creating Document: ANGELO GUEVARA RESIDENT Has the PT tested + for MRSA If YES, has PT been informed?: No Medical Necessity Reason Pt with a Central, PICC or Fol: No The following are medically ne: Elizondo Catheter Reason for elizondo catheter: Bladder Retention/Obstruc Subjective Review of Systems Review of Systems The patient is 74 years old female with past medical history of hypertension, diabetes mellitus, multiple sclerosis diagnosed in 1988, restless leg syndrome, carvedilol syndrome, chronic back pain, osteoporosis, obstructive sleep apnea on CPAP at night/or NC O2 3 L/min at night history of recurrent UTI came with a complaint of wound in the right buttock. As per patient she started developing small wound of the right lower buttock which gradually got worse and bigger. Yesterday she had this wound//abscess drained by friend at home which did not lots of passes. Patient also had a fever at home up to 102.5 degree F chills. Patient reported right buttock heart when sitting or putting pressure on the buttock. Patient also reported that she had a fall 2 days before at home when she was trying to transfer from bed to the chair and hit her right leg and head. Patient also reported urinary incontinence for a while. Patient denied any chest pain , diarrhea, coughing, abdominal pain, acute joint redness or swelling. Initial lab workup revealed leukocytosis WBC 12.5, hemoglobin 10.2, lactic acidosis with lactic acid 2.5,HbA1c 6.3, urinalysis revealed leukocyte esterase 1+, WBC 36, EKG revealed junctional tachycardia 02/12/25 Patient was examined at the bedside today. She reports worsening severe pain and swelling over the right buttock and lower gluteal region secondary to an abscess that was manually drained by a friend at home. She endorses persistent drainage, redness, warmth, and increasing discomfort. Additionally, the patient complains of bilateral lower extremity swelling described as "non-fitting" edema. She also notes pain in her right lower extremity, particularly the great toe region, following a fall 2 days ago. She denies chest pain, cough, or abdominal pain. She continues to have urinary incontinence. No nausea, vomiting, dizziness, headache, or visual changes reported today. She requests nursing assistance for wound care and toileting due to discomfort. 02/12/25 The patient was re-examined at the bedside today. She continues to experience severe right buttock pain due to a draining abscess. Morphine was administered overnight for pain control, with subsequent improvement in blood pressure. RN confirms that wound care is ongoing with application of Medihoney, and the wound appears clean but still draining. The patient reports worsening symptoms of restless leg syndrome. Baclofen was administered for restless leg syndrome. Blood pressure has fluctuated today between 138/77 and 158/89. She received 2L nasal cannula overnight with SpO? maintained at 98%. WBC count has improved to 9.5, CMP remains stable. Wound culture preliminary shows rare growthpossible Staphylococcus aureus. Gram stain showed rare RBCs, WBCs, and rare gram-positive cocci in pairs. Blood cultures remain negative at 48 hours. Awaiting evaluation by general surgery. 02/15/25 Patient was evaluated at the bedside today. She reports that her pain level has improved significantly to 34/10 following recent interventions. However, she had trouble sleeping last night due to her CPAP machine settings not being optimal, and she is awaiting input from her son to verify the correct settings. The right gluteal abscess underwent incision and drainage (I&D) on 02/14/[address] Jain. Wound appears clean with drainage decreasing; home health wound care and dressing changes have been arranged upon discharge. Discharge is deferred today due to severe right foot pain secondary to a subacute fracture. Podiatry, orthopedic, and physical therapy evaluations are still pending. The patient remains hemodynamically stable with improving leukocytosis. Wound culture grew Viridans group Streptococci and Staphylococcus aureus, both of which are sensitive to clindamycin, erythromycin, oxacillin, TMP-SMX, vancomycin, and ampicillin-sulbactam. Blood and urine cultures remain negative. Pain is currently well-managed with Narco, morphine, and acetaminophen. She remains on vancomycin, cefepime, clindamycin and ropinirole. 02/16/25 he patient was seen and evaluated at the bedside today. She is in stable condition and reports that her pain is currently well-controlled at 3/10. Daily dressing changes have been performed, and the right gluteal wound appears clean with minimal drainage. She is now ambulating minimally with assistance and has participated in physical therapy (PT) evaluation. The PT team recommends a short-term stay at a shelter facility (SNF) for 1 week for rehabilitation and assistance with ADLs, in addition to continued wound care and dressing changes. A podiatry consult was also completed today for her right foot pain secondary to a recent subacute fracture. No surgical intervention is recommended; the patient is advised to use [id number] arch supports and braces. The patient reports satisfaction with pain control and nursing care. financial services representative is actively working on SNF placement and transportation. Patient currently receives home health visits 3x/week for personal care. 02/18/25 The patient was evaluated at the bedside today. She is clinically stable, tolerating oral intake, and in no acute distress. She continues to receive daily wound care, and her pain remains well-controlled at 3/10. Dressing changes are being performed with good wound healing. Physical therapy has cleared the patient for discharge to SNF for short-term rehabilitation, wound care, and ADL assistance. Podiatry has cleared her for non-surgical conservative management of the right foot subacute fracture with arch support and bracing. Patient is currently awaiting insurance authorization for SNF transfer. Social work and case management are actively coordinating the logistics. No new complaints reported. 02/19/25 The patient was evaluated at the bedside today. She is clinically stable, tolerating oral intake, and in no acute distress. She continues to receive daily wound care, and her pain remains well-controlled at 3/10. Dressing changes are being performed with good wound healing. Physical therapy has cleared the patient for discharge to SNF for short-term rehabilitation, wound care, and ADL assistance. Podiatry has cleared her for non-surgical conservative management of the right foot subacute fracture with arch support and bracing. Patient is currently awaiting insurance authorization for SNF transfer. Social work and case management are actively coordinating the logistics. No new complaints reported. 02/20/25 The patient was evaluated at the bedside today. She is clinically stable, tolerating oral intake, and in no acute distress. She continues to receive daily wound care, and her pain remains well-controlled at 2/10. Dressing changes are being performed with good wound healing. Physical therapy has cleared the patient for discharge to SNF for short-term rehabilitation, wound care, and ADL assistance. Podiatry has cleared her for non-surgical conservative management of the right foot subacute fracture with arch support and bracing. Patient will be transferred today to SNF. Review of Systems (ROS): * General: Stable, afebrile, improved pain * Skin: Wound healing, no discharge or erythema * CV: Denies chest pain, palpitations * Resp: No shortness of breath or cough * GI: Tolerating diet, no nausea, vomiting, or abdominal pain * : No dysuria or hematuria * Neuro: Alert and oriented, no weakness or sensory loss * MSK: Right foot pain controlled, ambulating with assistance. * Psych: Mood stable, cooperative * Sleep: Restful with medication support * Functional: Requires SNF-level care for mobility and ADLs Objective vital signs Vital Sign Date Time Temp Pulse Resp B/P (MAP) Pulse Ox O2 Delivery O2 Flow Rate FiO2 02/20/25 05:00 98.8 68 18 113/72 (86) 92 98.8 02/19/25 20:00 Nasal Cannula* 2 28 Total Intake and Output 02/19/25 02/19/25 02/20/25 15:00 23:00 07:00 Intake Total 50 ml 1873 ml 950 ml Output Total 2300 ml 1650 ml Balance 50 ml -427 ml -700 ml medications Current Medications Medications Dose Ordered Sig/Paulo Route Start Time Stop Time Status Last Admin Dose Admin Acetaminophen 650 mg Q6HP PRN PO 02/11/25 23:30 02/20/25 01:34 650 MG Enoxaparin Sodium 40 mg HS SC 02/12/25 22:00 02/19/25 22:53 40 MG Vancomycin HCl 0 ml @ 0 mls/hr UD IV 02/11/25 23:30 Sodium Chloride 1,000 ml @ 125 mls/hr Q8H IV 02/11/25 23:30 02/19/25 22:56 125 MLS/HR Pantoprazole Sodium 40 mg DAILY@0600 PO 02/12/25 06:00 02/20/25 05:22 40 MG Diagnostic Test (Pha) 1 strip ACHS 02/12/25 07:00 02/20/25 06:00 1 STRIP Insulin Human Regular ACHS SC 02/12/25 07:00 02/20/25 06:39 2 UNITS Dextrose 50 ml UD PRN IV 02/11/25 23:30 Trazodone HCl 100 mg HS PO 02/12/25 22:00 02/19/25 22:54 100 MG Atorvastatin Calcium 20 mg HS PO 02/12/25 22:00 02/19/25 22:54 20 MG Losartan Potassium 50 mg DAILY PO 02/13/25 10:00 02/19/25 10:19 50 MG Acetaminophen/ Hydrocodone Bitart 1 tab Q6HP PRN PO 02/12/25 12:45 02/20/25 06:43 1 TAB Morphine Sulfate 1 mg Q4HP PRN IV 02/12/25 12:45 02/19/25 20:46 1 MG Hydralazine HCl 10 mg Q6HP PRN IV 02/12/25 12:45 Gabapentin 600 mg TID PO 02/12/25 14:00 02/20/25 05:21 600 MG Baclofen 10 mg BID PRN PO 02/12/25 13:15 02/19/25 23:00 10 MG Polyethylene Glycol 17 gm DAILYPRN PRN PO 02/12/25 13:15 02/13/25 21:34 17 GM Clindamycin Phosphate 50 ml @ 50 mls/hr Q8HR IV 02/12/25 22:00 02/20/25 05:20 50 MLS/HR Patient Own Medication 1 HS PO 02/13/25 22:00 02/19/25 22:00 1 Cefepime HCl 50 ml @ 12.5 mls/hr Q8H IV 02/13/25 23:00 02/20/25 06:38 12.5 MLS/HR Vancomycin HCl 200 ml @ 200 mls/hr Q12H IV 02/19/25 18:00 02/20/25 05:20 200 MLS/HR laboratory and microbiology Laboratory Tests 02/19/25 04:43 02/17/25 04:31 Test 02/17/25 04:31 Range/Units Serum Glucose 120 H 74-106 mg/dL Microbiology Date/Time Source Procedure Growth Status 02/14/25 13:31 Other Gram Stain - Final Complete 02/14/25 13:31 Anaerobic Culture - Final Bacteroides tectum Complete 02/14/25 13:31 Aerobic Culture - Final Enterococcus faecalis Complete 02/11/25 20:46 Voided Urine Urine Culture - Final Complete 02/11/25 18:40 Blood Blood Culture - Final NO GROWTH AFTER 5 DAYS OF INCUBATION. Complete Problem List/Assessment/Plan Problem List/Assessment/Plan Problem List/Assessment/Plan Assessment/Findings: 1. Sepsis likely secondary to right gluteal abscess with early signs of soft tissue necrosis. 2. Right buttock abscess with probable secondary infection and necrotizing changes per U/S. 3. Bilateral lower extremity edema - likely multifactorial (infection, dependent edema, poor mobility, CHF vs. venous stasis). 4. Junctional tachycardia, rate 144 bpm likely secondary to systemic illness/stress response. 5. Urinary tract infection pyuria and hematuria with history of incontinence and recurrent UTIs. 6. History of mechanical fall with right lower extremity trauma. 7. Type 2 diabetes mellitus well-controlled inpatient on sliding scale insulin. 8. Hypertension currently elevated; continues on losartan. 9. Obstructive sleep apnea on CPAP. 10. Multiple sclerosis chronic, stable. 11. Osteoporosis chronic, 12. Hyperlipidemia on atorvastatin. Plan (System-reis): Sepsis likely secondary to right gluteal abscess with early signs of soft tissue necrosis. * Continue IV Zosyn 3.375g Q8H and IV Vancomycin per protocol * Continue IV Clindamycin 900mg TID * Continue NS 125 mL/hr for hydration Right buttock abscess with probable secondary infection and necrotizing changes per U/S. * STAT Surgical consult for debridement of abscess vs. necrotizing fasciitis * Wound care consult for bedside management and debridement * Wound and blood cultures pending (preliminary: Staphilococcus aureus (+) * Daily CBC, BMP, lactate Bilateral lower extremity edema - likely multifactorial (infection, dependent edema, poor mobility, CHF vs. venous stasis) * Monitor for signs of fluid overload vs. cardiac cause of LE edema * Continue Losartan 50 mg daily * Monitor BP q6h, Pulmonary: * Continue CPAP at night as per home use * CXR showed cardiomegaly but clear lungs monitor for signs of fluid overload or infection * SpO2 9195% RA; continue monitoring Renal/Urinary: * UA suggestive of cystitis continue current empiric antibiotics * Encourage PO fluids Endocrine (DM2): * Continue Insulin Regular ACHS sliding scale * POC glucose monitoring most recent 166 mg/dL * HbA1c 6.3% controlled Neurology: * MS stable * CT head shows chronic ischemic changes; no acute bleed * Monitor neuro status given fall history GI/Nutrition: * Continue Pantoprazole 40 mg PO daily * Encourage PO intake * Consider nutrition consult if poor oral intake persists Musculoskeletal / Fall: * Ankle X-ray inconclusive CT recommended * Right great toe injury conservative management unless worsening * Physical therapy referral for mobility Prophylaxis: * Enoxaparin 40 mg SC daily for DVT prophylaxis * Pantoprazole for stress ulcer prophylaxis Plan: Discharge to SNF for rehabilitation and physical therapy. Plan discussed with Attending Physician Dr. Vides , nursing staff, Total time spent on patient evaluation, chart review, assessment and plan, discussion discussion >35 minutes Patient agrees with the plan. Full Code (+) Plan discussed with: Patient Dietary Evaluation Review Recommendations by RD: Dietary education by RD, Protein Supplementation Comments: 1) Initiate MVI @ 1 tb qd 2) Initiate vitamin C @ 500 mg bid and zinc sulfate @ 220 mg qd for 7 days 3) Initiate mer @ 1 pk bid 4) Encourage optimal PO intake 5) Refer to outpatient RD/CDCES for weight management 6) Continue to monitor I&O, labs, and skin integrity Expected Outcomes/Goals: 1) appetite and labs to improve 2) wound to improve 3) f/u in 3-5 days Date of Service: Feb 20, 2025 Billing Provider: LUKAS RIVER MD Common Visit Codes: [id number] INP/OBS CARE(HIGH) ANGELO GUEVARA RESIDENT Feb 20, 2025 06:59 LUKAS RIVER MD Feb 22, 2025 23:51
[2025-02-20] MEDS ORDERED: CEFEPIME 2GM/50ML NS 50 ML IV SCH (22:00)
== END 2025-02-20 19:25 | DRG 853 ==
LOC: ER 17:22 → OVERFLOW 23:21 → TELE-WESTW 02-12 06:35 → WEST WING 02-18 09:32
PROVIDERS: ADMIT Student in an Organized Health Care Education/Training Program
PROC: 0JBL0ZZ Excision of Right Upper Leg Subcutaneous Tissue and Fascia, Open Approach (ICD-10-PCS; principal; 2025-02-14 13:06)
DX: A41.9 Sepsis, unspecified organism (principal); J96.20 Acute and chronic respiratory failure, unspecified whether with hypoxia or hypercapnia; E87.20 Acidosis, unspecified; L02.31 Cutaneous abscess of buttock; N30.00 Acute cystitis without hematuria; L02.415 Cutaneous abscess of right lower limb; G35 Multiple sclerosis; E11.9 Type 2 diabetes mellitus without complications; G47.33 Obstructive sleep apnea (adult) (pediatric); G56.00 Carpal tunnel syndrome, unspecified upper limb; M54.9 Dorsalgia, unspecified; E78.5 Hyperlipidemia, unspecified; G25.81 Restless legs syndrome; G89.29 Other chronic pain; D63.8 Anemia in other chronic diseases classified elsewhere; I10 Essential (primary) hypertension; M81.0 Age-related osteoporosis without current pathological fracture; Z79.4 Long term (current) use of insulin; Z79.899 Other long term (current) drug therapy; Z82.49 Family history of ischemic heart disease and other diseases of the circulatory system; Z87.440 Personal history of urinary (tract) infections; Z88.1 Allergy status to other antibiotic agents; S92.901A Unspecified fracture of right foot, initial encounter for closed fracture
CPT/HCPCS: 36415; 70450; 71045; 73600; 76881; 80048; 80053; 80202; 81001; 82306; 82565; 82607; 82746; 82962; 83036; 83605; 83735; 83880; 84443; 84484; 85025; 85610; 85730; 87040; 87070; 87075; 87076; 87077; 87086; 87186; 87205; 93005; 93306; 96361; 96365; 96375; 97116; 97163; 97530; G0378; J0692; J1815; J1885; J2250; J2405; J2543; J2704; J3490